=== PATIENT | male | born 1970 | race Caucasian/White ===

== ENCOUNTER 2022-06-21 20:19 | Inpatient (IN) ==
[2022-06-21] MEDS ORDERED: MULTI-VITAMIN INFUSION 10 ML, THIAMINE HCL 100 MG, FOLIC ACID 1 MG in SODIUM CHLORIDE 0... IV ONE (20:47)
[2022-06-21] MEDS ORDERED: THIAMINE HCL 200 MG in SODIUM CHLORIDE 0.9% 50 ML IV STA (20:47)
[2022-06-21] MEDS ORDERED: FAMOTIDINE 20MG IV PUSH 20 MG/5 ML SYR IV STA (20:48)
[2022-06-21] MEDS ORDERED: ONDANSETRON INJ 2 MG/ML 2 ML VIAL IV STA (20:48)
--- NOTE | 2022-06-21 20:53 | Emergency Department Note ---
Impression & Plan Alcohol dependence, Alcohol withdrawal, Hypomagnesemia, Alcoholic gastritis, Elevated hemoglobin, Elevated hematocrit ED Provider Note NAME: KIRT ARAGON AGE: 51 SEX: F ARRIVES VIA: Ambulance INFORMANT: Patient ED PROVIDER(S): Leon Millan MD CHIEF COMPLAINT: chest pain, detox request PLAN: Disposition: admit MEDICAL DECISION MAKING: The patient is a 51-year-old gentleman with a past medical history of alcohol abuse/dependence, history of heroin abuse who presents to the emergency department via EMS for evaluation of cute onset chest pain and shortness of breath which occurred prior to arrival when he woke from sleep. He reports this motivated him to want to detox from alcohol as he know he needs to do to "get better". He reports he did have some vodka prior to EMS arrival. He reports he drinks half a gallon of vodka a day. He reports a history of withdrawal and delirium. He denies any history of alcohol withdrawal seizures. He denies any recent cough, congestion. He reports he has not eaten food in a week because of nausea. He reports loose stools which is chronic for him. On arrival, the patient is no acute distress, afebrile with stable vital signs. He appears clinically dry. Abdomen is benign. He is mildly anxious. EKG without overt acute ischemia. Chest x-ray with question of nonspecific interstitial thickening in the setting of the patient's daily smoking history per my prelimary review. WBC 4K, nonspecific. H/H elevated at 19.2/53.7 without prior values for comparison and likely reflects a component of the patient's daily smoking as well as hemoconcentration given his clinical dry appearance. Platelets within normal limits. Potassium 3.1 and magnesium 1.6 with repletion provided. Chemistry without metabolic acidosis. AST elevated 93 consistent with the patient's alcohol dependence. High-sensitivity troponin 7.6, within normal limits. Lipase is not elevated. Medical alcohol 258. COVID-19 RNA, RODRIGO test was negative. Patient was treated with IV fluid hydration with banana bag, nimesh tional thiamine supplementation, Pepcid and Zofran. AWSS scoring and PRN Ativan ordered. Patient was referred for admission for further management of his alcohol dependence and risk for withdrawal. Case was discussed with Dr. Winter, [facility] hospitalist, who will evaluate the patient for admission. Triage Nursing notes reviewed and agree them. Prior medical records reviewed Vital Signs: reviewed and remarkable for no significant abnormalities Differential diagnosis: Cardiac ischemia, aortic dissection, pulmonary embolism, pneumothorax, pneumonia, pericarditis, myocarditis, esophageal rupture, GERD, cholecystitis, pancreatitis, musculoskeletal, as well as other pathologies. ER treatment provided: See below. Diagnostics interpreted by me: ECG: Normal sinus rhythm, 60 bpm, no ectopy, no overt ST elevation or depression, QTC 450, QRS 98. Cardiac Monitoring: An order for continuous cardiac monitoring was placed and demonstrated Normal sinus rhythm, 60 bpm, no ectopy. Laboratory studies: See below Imaging studies: See below Consultation(s): Case was discussed with Dr. Winter, [facility] hospitalist, who will evaluate the patient for admission. HPI: The patient is a 51-year-old gentleman with a past medical history of alcohol abuse/dependence, history of heroin abuse who presents to the emergency department via EMS for evaluation of cute onset chest pain and shortness of breath which occurred prior to arrival when he woke from sleep. He reports this motivated him to want to detox from alcohol as he know he needs to do to "get better". He reports he did have some vodka prior to EMS arrival. He reports he drinks half a gallon of vodka a day. He reports a history of withdrawal and delirium. He denies any history of alcohol withdrawal seizures. He denies any recent cough, congestion. He reports he has not eaten food in a week because of nausea. He reports loose stools which is chronic for him. ROS: See above HPI for pertinent positives & negatives. A total of 10 systems reviewed and were otherwise negative. VITALS:See Below PHYSICAL EXAMINATION: GENERAL: Awake, alert, anxious-appearing, in no distress HENT: Normocephalic, atraumatic. Oropharynx with dry mucous membranes and otherwise unremarkable. EYES: Normal conjunctiva. Sclera non-icteric. NECK: Supple. No nuchal rigidity. FROM. No JVD. RESPIRATORY: Clear to auscultation. CARDIAC: Regular rate, normal rhythm. Extremities warm and well perfused. Pulses equal. ABDOMEN: Soft, non-distended. No tenderness to palpation. No rebound or guardin g. No masses. RECTAL: Deferred. MUSCULOSKELETAL: Chest examination reveals no tenderness. The back is symmetrical on inspection without obvious abnormality. There is no CVA tenderness to palpation. No joint edema. LOWER EXTREMITIES: Calves are equal size bilaterally and non-tender. No edema. No discoloration. NEURO: Normal sensorium. No focal sensory or motor deficits noted. No overt tremors. SKIN: No rash or jaundice noted. Leon Millan MD Past Med/Surg History Medical History Alcohol dependence Alcohol withdrawal History of heroin abuse Family History Other Family history non-contributory Social History Smoking Status: Current every day smoker Preferred Language: Dutch Feels Safe at Home: Yes Allergies Allergies Allergy/AdvReac Type Severity Reaction Status Date / Time No Known Allergies Allergy Unverified 06/21/22 21:12 Home Meds Home Medications Medication Instructions Recorded Confirmed trazodone 50 mg tablet 50 mg PO HS 06/21/22 06/21/22 Results & Data (ED) Vital Signs Vital Signs - 24 hr 06/21/22 20:25 06/21/22 20:35 06/21/22 21:53 Temperature 36.9 C Temperature Source Oral Pulse Rate 69 Pulse Rate [Finger] 104 H Respiratory Rate 18 18 Respiratory Effort / Characteristics Non-Labored Spontaneous Non-Labored Spontaneous Respiratory Depth Normal Normal Blood Pressure 134/91 Blood Pressure [Right Arm] 127/87 Blood Pressure Mean 105 Blood Pressure Mean [Right Arm] 100 Blood Pressure Position Sitting Blood Pressure Position [Right Arm] Sitting Pulse Oximetry 91 91 96 Oxygen Delivery Method Room Air Room Air Room Air Sepsis Recent Fever Within 48 Hours No Sepsis New/Unexplained Change in Mental Status No Sepsis Action Taken by Nursing No Action Required 06/21/22 22:16 06/21/22 22:16 06/21/22 23:52 Temperature Temperature Source Pulse Rate 72 Pulse Rate [Finger] 90 Respiratory Rate 18 22 Respiratory Effort / Characteristics Respiratory Depth Blood Pressure Blood Pressure [Right Arm] 127/75 Blood Pressure Mean Blood Pressure Mean [Right Arm] 92 Blood Pressure Position Blood Pressure Position [Right Arm] Pulse Oximetry 96 96 97 Oxygen Delivery Method Room Air Room Air Room Air Sepsis Recent Fever Within 48 Hours Sepsis New/Unexplained Change in Mental Status Sepsis Action Taken by Nursing Laboratory Data Attestation: I reviewed the patient's lab results. Result diagrams: 06/21/22 20:35 06/21/22 20:35 Lab Results 06/21/22 06/21/22 06/21/22 Range/Units 20:35 20:35 Unknown WBC 4.17 L (4.8-10.8) K/ul RBC 5.75 H (3.93-5.22) M/uL Hgb 19.2 H (12.0-16.0) g/dl Hct 53.7 H (34.1-44.9) % MCV 93.4 (80.0-100.0) fL MCH 33.4 (25.0-34.0) pg MCHC 35.8 (32.0-36.0) g/dL RDW Std Deviation 51.2 H (36.4-46.3) fL RDW Coeff of Kristopher 14.9 H (11.5-14.5) % Plt Count 146 (130-400) K/uL MPV 10.3 (9.4-12.3) fL Immature Gran % (Auto) 0.2 % Neut % (Auto) 34.1 % Lymph % (Auto) 55.2 % Avery % (Auto) 9.1 % Eos % (Auto) 0.7 % Baso % (Auto) 0.7 % Neut # (Auto) 1.42 (1.4-6.5) K/uL Lymph # (Auto) 2.30 (1.2-3.4) K/uL Avery # (Auto) 0.38 (0.24-0.82) K/uL Eos # (Auto) 0.03 (0-0.50) K/uL Baso # (Auto) 0.03 (0-0.2) K/uL Immature Gran # (Auto) 0.01 (0.00-0.02) K/uL Sodium 145 (136-145) mmol/L Potassium 3.1 L (3.5-5.1) mmol/L Chloride 106 (98-107) mmol/L Carbon Dioxide 27 (21-32) mmol/L Anion Gap 12 H (3-11) BUN 2 L (6-23) mg/dl Creatinine 0.78 (0.6-1.4) mg/dl Est Cr Clr Drug Dosing 124.4 ml/min Est GFR ( Amer) 122.0 ml/min Est GFR (Non-Af Amer) 105.3 ml/min BUN/Creatinine Ratio 2.6 L (10-20) Glucose 95 (70-99(Fasting)) mg/dl Calcium 8.8 (8.5-10.1) mg/dl Phosphorus 3.0 (2.5-4.9) mg/dl Magnesium 1.6 L (1.7-2.4) mg/dl Total Bilirubin 0.8 (0.2-1.0) mg/dl AST 93 H (13-39) U/L ALT 44 (7-52) U/L Alkaline Phosphatase 105 H (34-104) U/L Troponin I High Sens 7.6 (0-20) pg/ml Total Protein 7.5 (6.0-8.3) gm/dl Albumin 4.0 (3.4-5.0) gm/dl Globulin 3.5 (2.5-4.0) gm/dl Albumin/Globulin Ratio 1.1 (0.9-2) Lipase 11 (11-82) U/L Ethyl Alcohol mg/dL (<10.0) mg/dl SARS-CoV-2, RNA, NAAT NEGATIVE (NEGATIVE) 06/22/22 06/22/22 Range/Units 00:03 00:03 WBC (4.8-10.8) K/ul RBC (3.93-5.22) M/uL Hgb (12.0-16.0) g/dl Hct (34.1-44.9) % MCV (80.0-100.0) fL MCH (25.0-34.0) pg MCHC (32.0-36.0) g/dL RDW Std Deviation (36.4-46.3) fL RDW Coeff of Kristopher (11.5-14.5) % Plt Count (130-400) K/uL MPV (9.4-12.3) fL Immature Gran % (Auto) % Neut % (Auto) % Lymph % (Auto) % Avery % (Auto) % Eos % (Auto) % Baso % (Auto) % Neut # (Auto) (1.4-6.5) K/uL Lymph # (Auto) (1.2-3.4) K/uL Avery # (Auto) (0.24-0.82) K/uL Eos # (Auto) (0-0.50) K/uL Baso # (Auto) (0-0.2) K/uL Immature Gran # (Auto) (0.00-0.02) K/uL Sodium (136-145) mmol/L Potassium (3.5-5.1) mmol/L Chloride (98-107) mmol/L Carbon Dioxide (21-32) mmol/L Anion Gap (3-11) BUN (6-23) mg/dl Creatinine (0.6-1.4) mg/dl Est Cr Clr Drug Dosing ml/min Est GFR ( Amer) ml/min Est GFR (Non-Af Amer) ml/min BUN/Creatinine Ratio (10-20) Glucose (70-99(Fasting)) mg/dl Calcium (8.5-10.1) mg/dl Phosphorus (2.5-4.9) mg/dl Magnesium (1.7-2.4) mg/dl Total Bilirubin (0.2-1.0) mg/dl AST (13-39) U/L ALT (7-52) U/L Alkaline Phosphatase (34-104) U/L Troponin I High Sens 7.2 (0-20) pg/ml Total Protein (6.0-8.3) gm/dl Albumin (3.4-5.0) gm/dl Globulin (2.5-4.0) gm/dl Albumin/Globulin Ratio (0.9-2) Lipase (11-82) U/L Ethyl Alcohol mg/dL 258.7 H (<10.0) mg/dl SARS-CoV-2, RNA, NAAT (NEGATIVE) Administered Medications Discontinued Medications Multivitamins 10 ml/ Thiamine HCl 100 mg/ Folic Acid 1 mg/Sodium Chloride 1, 011.2 mls @ 1,011.2 mls/hr IV .Q1H ONE Stop: 06/21/22 21:46 Last Infusion: 06/21/22 23:52 Dose: 0 mls/hr Documented By: MWDariel Admin: 06/21/22 22:40 Dose: 1,011.2 mls/hr Documented By: CC Thiamine HCl 200 mg/ Sodium (Chloride) 52 mls @ 208 mls/hr IV NOW STA Stop: 06/21/22 20:48 Last Infusion: 06/21/22 22:56 Dose: 0 mls/hr Documented By: Admin: 06/21/22 22:01 Dose: 208 mls/hr Documented By: CC Famotidine (Pepcid 20mg Iv Push) 20 mg in 5 mls @ 2.5 mls/min IV NOW STA Stop: 06/21/22 20:49 Last Admin: 06/21/22 21:29 Dose: 2.5 mls/min Documented By: CC Magnesium Sulfate/Dextrose (Magnesium Sulfate / D5w) 1 gm in 100 mls @ 100 mls/hr IV Q1H BEATRICE Stop: 06/22/22 00:03 Last Admin: 06/21/22 23:48 Dose: 100 mls/hr Documented By: Infusion: 06/21/22 23:48 Dose: 100 mls/hr Documented By: Admin: 06/21/22 22:51 Dose: 100 mls/hr Documented By: CC Sodium Chloride (Nss 1000ml) 1,000 mls @ 999 mls/hr IV .Q1H1M ONE Stop: 06/21/22 23:40 Last Admin: 06/21/22 23:49 Dose: 999 mls/hr Documented By: BASIL Potassium Chloride (K Ar / Wtr) 10 meq in 100 mls @ 100 mls/hr IV Q1H BEATRICE; Protocol Stop: 06/22/22 00:44 Last Admin: 06/21/22 23:48 Dose: 100 mls/hr Documented By: Infusion: 06/21/22 23:48 Dose: 100 mls/hr Documented By: Admin: 06/21/22 22:52 Dose: 100 mls/hr Documented By: CC Ondansetron HCl (Ondansetron Inj 2 Mg/Ml 2 Ml Vial) 4 mg IV NOW STA Stop: 06/21/22 20:49 Last Admin: 06/21/22 21:25 Dose: 4 mg Documented By: CC Imaging Data My Impression: CXR: Nonspecific interstitial thickening per my preliminary review. Discharge Plan Visit Data Chief Complaint: Detox Request Stated Complaint: detoxing ED Provider: Leon Millan Discharge Problem: Alcohol dependence, Alcohol withdrawal, Hypomagnesemia, Alcoholic gastritis, Elevated hemoglobin, Elevated hematocrit Forms Stand Alone Forms: [facility], Suicide Prevention Resources Prescriptions Prescriptions: No Action trazodone 50 mg Tablet 50 mg PO HS Referrals Referrals: PCP,NO [Physician] -
[2022-06-21 21:13] LABS: Mean Corpuscular Hemoglobin 33.4 pg (25.0-34.0); Mean Corpuscular Hgb Conc 35.8 g/dL (32.0-36.0); Mean Corpuscular Volume 93.4 fL (80.0-100.0); Platelet Count 146 K/uL (130-400); RDW Coefficient of Variation 14.9 % (11.5-14.5); RDW Standard Deviation 51.2 fL (36.4-46.3); White Blood Count 4.17 K/ul (4.8-10.8)
[2022-06-21 21:32] LABS: Troponin I High Sensitivity 7.6 pg/ml (0-20)
[2022-06-21 21:43] LABS: Albumin Globulin Ratio 1.1 (0.9-2); BUN Creatinine Ratio 2.6 (10-20); Bilirubin,Total 0.8 mg/dl (0.2-1.0); Calcium 8.8 mg/dl (8.5-10.1); Creatinine Clr Calc Pharmacy 124.4 ml/min; Est GFR (Non-African American) 105.3 ml/min; Globulin 3.5 gm/dl (2.5-4.0); Magnesium 1.6 mg/dl (1.7-2.4); Potassium 3.1 mmol/L (3.5-5.1); Total Protein 7.5 gm/dl (6.0-8.3)
[2022-06-21] MEDS ORDERED: LORazepam 1 MG in SYRINGE 0.5 ML IV PRN (22:02)
[2022-06-21] MEDS ORDERED: SODIUM CHLORIDE 0.9% 1000ML 1,000 ML IV ONE (22:40)
[2022-06-21 22:42] LABS: Basophils # (auto) 0.03 K/uL (0-0.2); Basophils % (auto) 0.7 %; Eosinophils # (auto) 0.03 K/uL (0-0.50); Eosinophils % (auto) 0.7 %; Immature Granulocytes # (auto) 0.01 K/uL (0.00-0.02); Immature Granulocytes % (auto) 0.2 %; Lymphocytes % (auto) 55.2 %; Monocytes # (auto) 0.38 K/uL (0.24-0.82); Monocytes % (auto) 9.1 %; Neutrophils # (auto) 1.42 K/uL (1.4-6.5); Neutrophils % (auto) 34.1 %
[2022-06-21] MEDS: MAGNESIUM SULFATE / D5W 1 GM/100 ML BAG IV SCH ×2 (22:51→23:48)
[2022-06-21] MEDS: POTASSIUM CHLORIDE / WTR 10 MEQ/100 ML PLCT IV SCH ×2 (22:52→23:48)
[2022-06-22] MEDS ORDERED: POTASSIUM CHLORIDE 20 MEQ/15 ML UDC PO STA (00:32)
[2022-06-22] MEDS ORDERED: cloNIDine HCL 0.1 MG TAB PO PRN (01:48)
[2022-06-22] MEDS ORDERED: ONDANSETRON INJ 2 MG/ML 2 ML VIAL IV PRN (01:48)
[2022-06-22] MEDS ORDERED: NITROGLYCERIN SL 0.4 MG/TAB TAB SL PRN (01:48)
[2022-06-22] MEDS ORDERED: Ativan IV Alcohol Withdrawal--Active Protocol IV PRN (01:48)
[2022-06-22] MEDS ORDERED: LORazepam 3 MG in SYRINGE 1.5 ML IV PRN (01:48)
[2022-06-22] MEDS ORDERED: LORazepam 2 MG in SYRINGE 1 ML IV PRN (01:48)
[2022-06-22] MEDS ORDERED: chlordiazePOXIDE ALCOHOL WITHDRAWL 50MG PO STA (01:48)
[2022-06-22] MEDS ORDERED: SODIUM CHLORIDE 0.9% 1000ML 1,000 ML IV SCH (01:48)
[2022-06-22] MEDS: chlordiazePOXIDE HCl 25 MG CAP PO SCH ×4 (02:57→20:07)
--- NOTE | 2022-06-22 04:03 | History and Physical Report ---
DATE OF ADMISSION: 06/22/2022. CHIEF COMPLAINT: Chest pain. Alcohol detox request. HISTORY OF PRESENT ILLNESS: A 51-year-old male with past medical history significant for mitral valve disorder, history of cervical intervertebral disc displacement, cervicalgia, anxiety, tobacco use disorder, depression, ongoing alcoholism, presents with alcohol detox request. The patient states that he had tried to quit few times in the past, last time he tried to quit was 3 weeks ago. He states he is drinking about half a gallon of alcohol daily and also root beer, drinking regularly since last one and half years. Before that he quit for 9 months when his was . Yesterday when he woke up in the afternoon he felt he was not breathing right and he took a deep breath and then he had severe chest pain all over the chest that lasted for about 1 hour, at that time he decided to quit alcohol and came to the hospital to help with withdrawal. Resting comfortably, hemodynamically stable. Denies any headache or neck pain. 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 No sore throat. No cough, no fever, no chills. No shortness of breath. Today he is not nauseous, denies any abdominal pain. Normal bowel and bladder movements. No swelling in the legs. ALLERGIES: No known drug allergies. PAST MEDICAL HISTORY: As mentioned above. PAST SURGICAL HISTORY: No surgical history on file. SOCIAL HISTORY: , smokes 1 pack a day. Alcohol, drinking quarter gallon of alcohol daily and also root beer. Smokes marijuana a couple times a week. REVIEW OF SYSTEMS: As per HPI. Rest of review of systems is negative. PHYSICAL EXAMINATION: GENERAL: The patient is of moderate build, not in acute distress. VITAL SIGNS: Temperature 36.9, pulse 90, respiratory rate 22, blood pressure 127/75, oxygen 97% on room air. HEENT: Pupils equal, round and reactive to light. Oral mucosa moist. NECK: No JVD. No neck masses. CARDIOVASCULAR: S1 and S2 heard. Regular rate and rhythm. No murmur, no gallop. RESPIRATORY SYSTEM: Normal AP diameter. No accessory muscle use. No wheezing, no crackles. ABDOMEN: Soft, bowel sounds present, nontender, no distention. CENTRAL NERVOUS SYSTEM: Cranial nerves II through XII are grossly intact, nonfocal. EXTREMITIES: No edema, no erythema. LABORATORY DATA: WBC 4.1, hemoglobin 19.2, hematocrit 53.7, platelets 146. Sodium 145, potassium 3.1, chloride 107, bicarbonate 27, BUN 22, creatinine 0.7, serum glucose 95, calcium 8.8, phosphorus 3, magnesium 1.6, total bilirubin 0.8, AST 93, ALT 44, alkaline phosphatase 105. Troponin I high sensitivity 7.6. Lipase 11. Ethyl alcohol 258. SARS-CoV-2 rapid test negative. IMAGING DATA: Chest x-ray, no acute findings. EKG: Normal sinus rhythm at a rate of 60, no previous EKGs available. ASSESSMENT AND PLAN: This is a 51-year-old male who presents with chest pain and for alcohol detoxification. 1. Chest pain, initial workup was negative. The patient duenas hx of alcoholism, smoking. Follow serial enzymes, echo, consult cardiology for further recommendations. We will keep him n.p.o. until seen by cardiology. 2. Alcoholism. Detox request. He received banana bag in the ER. Place him on p.o. Librium protocol and IV Ativan p.r.n., IV thiamine, IV folic acid and closely monitor for alcohol withdrawal. Follow the vitamin B12, folate levels. clonidine p.r.n. for any withdrawal. 3. History of tobacco abuse, nicotine patch. 4. History of depression, on trazodone. 5. History of mitral valve disorder. Follow echo. 6. Hypokalemia: Will replace. 7. Deep venous thrombosis prophylaxis: Lovenox. DISPOSITION: Closely monitor in the med/tele. PT/OT prior to discharge. Social service to help with discharge planning. Job ID: [id number] [facility]
[2022-06-22] MEDS ORDERED: LORazepam 2 MG/1 ML VIAL ONE ×2 (07:10→13:22)
[2022-06-22] MEDS: LORazepam 1 MG in SYRINGE 0.5 ML IV PRN ×2 (07:14→13:24)
--- NOTE | 2022-06-22 07:59 | XRay Report ---
XR chest 1V portable CLINICAL HISTORY: Chest Pain TECHNIQUE: Single frontal radiograph of the chest was obtained. Comparison: None available at the time of this dictation. FINDINGS: No lines and tubes are seen. The cardiomediastinal silhouette is normal. The lungs are clear. No evid ence of pleural effusion or pneumothorax. IMPRESSION: No acute chest disease. ACT 112: Negative or not required by law. Electronically signed by: Arthur Cabrera M.D. 06/22/2022 7:57 AM
[2022-06-22 08:16] LABS: Hematocrit (blood only) 46.5 % (40.1-51.0); Hemoglobin 16.3 g/dl (14.0-18.0); Mean Corpuscular Hemoglobin 33.5 pg (25.0-34.0); Mean Corpuscular Hgb Conc 35.1 g/dL (32.0-36.0); Mean Corpuscular Volume 95.5 fL (80.0-100.0); Mean Platelet Volume 10.5 fL (9.4-12.4); Platelet Count 140 K/uL (130-400); RDW Coefficient of Variation 15.1 % (11.5-14.5); RDW Standard Deviation 53.2 fL (36.4-46.3); Red Blood Count 4.87 M/uL (4.63-6.08); White Blood Count 4.17 K/ul (4.8-10.8)
--- NOTE | 2022-06-22 08:35 | Cardiology Consultation ---
Date of Consultation June 22, 2022 Assessment & Plan (1) Alcohol dependence: (2) Alcohol withdrawal: (3) Alcoholic gastritis: (4) Chest pain: Plan chest pain in the setting of acute alcohol intoxication in a patient with chronic alcoholism that presented requesting detox trop negative ekg unremarkable check echo very low likelihood of ACS recommend treating alcoholism and complete cardiac work up as outpatient Recommend treating underlying alcoholic gastritis History of Present Illness Reason for Consultation: chest pain Requesting Physician: Moy Attending Physician: Akil Valles MD History of Present Illness It was my pleasure to see Mr. Prince in cardiac consultation today June 22, 2022. He is a very pleasant 51-year-old gentleman who presented to [facility] on 06/21/2022 seeking acute inpatient detox for alcoholism. Upon review of systems, he stated that he has been having some chest/epigastric discomfort on the morning of presentation. He states that similar to the gastritis pain that he has had in the past. He also states he has been drinking alcohol continuously but has not eaten any food in 1 week. Denies any other cardiac complaints of shortness of breath, or palpitations. Allergies Allergy/AdvReac Type Severity Reaction Status Date / Time No Known Allergies Allergy Unverified 06/21/22 21:12 Home Medications Medication Instructions Recorded Confirmed Type trazodone 50 mg tablet 50 mg PO HS 06/21/22 06/21/22 History Patient History Medical History Alcohol dependence Alcohol withdrawal History of heroin abuse Family History Other Family history non-contributory Social History Smoking Status: Current every day smoker Cigarettes Per Day: 1/2 pack/day; Hx Alcohol Use: Yes Alcohol type: hard liquor Preferred Language: Portuguese Communication Ability: Effective Nursing Instructor Required: No Beliefs That Will Affect Care: None Current Living Situation: Significant Other Other Information That Helps Us Care for You: No Feels Safe at Home: Yes Safety Concerns: Feels Safe At This Time Assistive Devices: None Review of Systems Review of Systems: All systems reviewed & are unremarkable except as noted in HPI & below Physical Exam Physical Exam: General: Awake, alert and oriented x 3. Mildly anxious HEENT: Normocephalic, atraumatic. Pupils equal, round and reactive to light and accommodation. Extraocular muscles are intact. Anicteric sclera. Moist mucous membranes. Neck: No JVD. No bruit. Cardiovascular: Regular. Positive S-4. Normal S-1 and S-2. No S-3. No murmurs or rubs. Pulmonary: Clear to auscultation B/L. No rales, rhonchi or wheezing Abdomen: Bowel sounds x 4, soft. No rebound, guarding or tenderness. No organomegaly. Extremities: No clubbing, cyanosis or edema. +2 pedal pulses bilaterally. Skin: Warm and dry. Results & Data ([facility]) Vital Signs (Past 12 Hours) Vital Signs Pulse Pulse Resp BP BP Pulse Ox Pulse Ox 06/22/22 07:35 94 06/22/22 06:00 65 17 06/22/22 05:30 70 20 06/22/22 05:00 66 19 06/22/22 04:30 63 13 06/22/22 04:09 119/74 06/22/22 04:09 65 12 06/22/22 04:00 63 19 06/22/22 03:30 65 16 06/22/22 03:00 80 16 97 06/22/22 03:00 129/92 06/22/22 02:30 60 16 06/22/22 02:00 67 12 95 06/22/22 02:00 120/82 06/22/22 01:57 64 20 95 06/22/22 01:57 114/78 06/22/22 01:30 64 16 06/22/22 01:00 64 17 06/22/22 00:30 60 10 L 06/22/22 00:00 83 25 H 06/21/22 23:43 62 22 92 06/21/22 23:43 127/75 06/21/22 23:42 76 15 90 06/21/22 23:04 121/67 06/21/22 23:04 61 17 94 06/21/22 23:00 65 21 06/21/22 22:30 61 23 06/21/22 22:01 91 H 28 H 06/21/22 22:01 110/80 06/21/22 22:00 66 23 90 06/21/22 21:54 85 25 H 06/21/22 21:54 127/87 06/21/22 21:30 70 22 93 06/21/22 21:00 66 19 95 06/22/22 02:02 64 114/78 91 06/21/22 23:52 90 22 127/75 97 06/21/22 22:16 72 18 96 06/21/22 22:16 96 06/21/22 21:53 104 H 18 127/87 96 06/21/22 20:35 91 O2 Del Method O2 Del Method 06/22/22 07:35 Nasal Cannula 06/22/22 06:00 06/22/22 05:30 06/22/22 05:00 06/22/22 04:30 06/22/22 04:09 06/22/22 04:09 06/22/22 04:00 06/22/22 03:30 06/22/22 03:00 06/22/22 03:00 06/22/22 02:30 06/22/22 02:00 06/22/22 02:00 06/22/22 01:57 06/22/22 01:57 06/22/22 01:30 06/22/22 01:00 06/22/22 00:30 06/22/22 00:00 06/21/22 23:43 06/21/22 23:43 06/21/22 23:42 06/21/22 23:04 06/21/22 23:04 06/21/22 23:00 06/21/22 22:30 06/21/22 22:01 06/21/22 22:01 06/21/22 22:00 06/21/22 21:54 06/21/22 21:54 06/21/22 21:30 06/21/22 21:00 06/22/22 02:02 Room Air 06/21/22 23:52 Room Air 06/21/22 22:16 Room Air 06/21/22 22:16 Room Air 06/21/22 21:53 Room Air 06/21/22 20:35 Room Air
[2022-06-22] MEDS: THIAMINE HCL 100 MG in SYRINGE 9 ML IV SCH (08:41)
[2022-06-22] MEDS: NICOTINE 21 MG/24 HR TDSY TD SCH (08:42)
[2022-06-22 08:43] LABS: Basophils # (auto) 0.03 K/uL (0-0.2); Basophils % (auto) 0.7 %; Eosinophils # (auto) 0.05 K/uL (0-0.50); Eosinophils % (auto) 1.2 %; Immature Granulocytes # (auto) 0.01 K/uL (0.00-0.02); Immature Granulocytes % (auto) 0.2 %; Lymphocytes # (auto) 1.79 K/uL (1.2-3.4); Lymphocytes % (auto) 42.9 %; Monocytes # (auto) 0.32 K/uL (0.24-0.82); Monocytes % (auto) 7.7 %; Neutrophils # (auto) 1.97 K/uL (1.4-6.5); Neutrophils % (auto) 47.3 %
[2022-06-22] MEDS: FAMOTIDINE 10 MG TABLET PO SCH ×2 (08:43→20:04)
[2022-06-22] MEDS: CEROVITE ADV FORMULA TAB PO SCH (08:43)
[2022-06-22] MEDS: ENOXAPARIN INJ 40 MG/0.4 ML SYR SQ SCH (08:44)
[2022-06-22] MEDS: FOLIC ACID 1 MG in SYRINGE 9.8 ML IV SCH (08:46)
[2022-06-22 08:50] LABS: BUN Creatinine Ratio 2.6 (10-20); Calcium 7.5 mg/dl (8.5-10.1); Est GFR (African American) 122.6 ml/min; Est GFR (Non-African American) 105.8 ml/min; Magnesium 1.6 mg/dl (1.7-2.4); Potassium 3.3 mmol/L (3.5-5.1)
[2022-06-22 08:53] LABS: Troponin I High Sensitivity 6.9 pg/ml (0-20)
[2022-06-22 09:17] LABS: Folate (Folic Acid) 6.29 ng/ml (>5.38)
--- NOTE | 2022-06-22 09:28 | Electrocardiogram Report ---
Test Reason : Blood Pressure : / mmHG Vent. Rate : 060 BPM Atrial Rate : 060 BPM P-R Int : 132 ms QRS Dur : 098 ms QT Int : 450 ms P-R-T Axes : 044 077 042 degrees QTc Int : 450 ms Poor data quality, interpretation may be adversely affected Normal sinus rhythm Poor R wave progression, consider anterior MA vs. lead placement vs. LVH Abnormal ECG No previous ECGs available Confirmed by James Mendez ([id number]) on 06/22/2022 9:28:21 AM Referred By: REFERRED SELF Confirmed By:James Mendez
[2022-06-22 09:32] LABS: Albumin Level 3.3 gm/dl (3.4-5.0); Bilirubin Direct 0.3 mg/dl (0-0.2); Bilirubin,Total 0.9 mg/dl (0.2-1.0)
--- NOTE | 2022-06-22 16:28 | Electrocardiogram Report ---
Test Reason : Blood Pressure : / mmHG Vent. Rate : 069 BPM Atrial Rate : 069 BPM P-R Int : 124 ms QRS Dur : 104 ms QT Int : 468 ms P-R-T Axes : 037 066 051 degrees QTc Int : 501 ms Normal sinus rhythm Poor R wave progression, consider anterior FL vs. lead placement vs. LVH Prolonged QT Abnormal ECG When compared with ECG of 21-JUN-2022 20:20, QT has lengthened Confirmed by James Mendez ([id number]) on 06/22/2022 4:27:36 PM Referred By: REFERRED SELF Confirmed By:James Mendez
[2022-06-22] MEDS ORDERED: ACETAMINOPHEN 500 MG TAB PO PRN (16:45)
[2022-06-22] MEDS ORDERED: HYDROCODONE/ACETAMOPHEN 5/325MG TAB PO PRN (16:46)
--- NOTE | 2022-06-22 18:16 | Communication Note ---
Date of Service: June 22, 2022 Attending Addendum: patient seen and examined, records reviewed by myself as well on exam, patient seen resting in bed, comfortable sitting up pleasant, calm, cooperative states he feels better overall denies tremors, hallucinations, sweats, confusion does reports BLE spasms- which he attributes from shaking denies depression, anxiety, SI no chest pain, dyspnea, palpitations, dizziness no other symptoms VS noted and reviewed oriented x 3, not in distress, speaks in sentences with no effort nor accessory muscle use normal rate, regular rhythm, no murmurs clear breath sounds bilaterally non distended, soft, nontender no bipedal edema, erythema, warmth no neuro deficits no tremors all labs noted and reviewed ASSESSMENT AND PLAN> CHEST PAIN ACS ruled out ALCOHOL WITHDRAWAL continue Librium, PRN Ativan LEG CRAMPS check electrolytes IV NSS PRN tylenol, norco warm compress other diagnoses and plan of care as per Dr Winter's notes plan of care discussed with patient in detail and at length all questions answered he is understanding, agreeable, comfortable with the plan of care Kamar Chavis MD
[2022-06-22 18:24] LABS: BUN Creatinine Ratio 3.6 (10-20); Calcium 8.1 mg/dl (8.5-10.1); Creatinine Clr Calc Pharmacy 115.5 ml/min; Est GFR (African American) 118.3 ml/min; Est GFR (Non-African American) 102.1 ml/min; Magnesium 1.4 mg/dl (1.7-2.4); Phosphorus 2.3 mg/dl (2.5-4.9); Potassium 3.4 mmol/L (3.5-5.1)
[2022-06-22] MEDS ORDERED: POTASSIUM CHLORIDE CRTAB 20 MEQ TABCR PO STA (18:35)
[2022-06-22] MEDS: NSS + 20MEQ KCL 20 MEQ/1,000 ML BAG IV SCH (18:43)
[2022-06-22] MEDS: POT PHOSPHATE MONOBASIC W/ SOD TAB PO SCH ×2 (18:47→20:07)
[2022-06-22] MEDS: MAGNESIUM SULFATE / D5W 1 GM/100 ML BAG IV SCH ×2 (18:48→20:31)
[2022-06-22] MEDS ORDERED: traZODone HCL 50 MG TAB PO SCH (21:00)
[2022-06-23] MEDS: chlordiazePOXIDE HCl 25 MG CAP PO SCH ×2 (01:53→09:57)
[2022-06-23] MEDS: NSS + 20MEQ KCL 20 MEQ/1,000 ML BAG IV SCH (06:17)
[2022-06-23] MEDS: THIAMINE HCL 100 MG in SYRINGE 9 ML IV SCH (07:49)
[2022-06-23] MEDS: FAMOTIDINE 10 MG TABLET PO SCH (07:50)
[2022-06-23] MEDS: CEROVITE ADV FORMULA TAB PO SCH (07:50)
[2022-06-23] MEDS: ENOXAPARIN INJ 40 MG/0.4 ML SYR SQ SCH (07:51)
[2022-06-23] MEDS: NICOTINE 21 MG/24 HR TDSY TD SCH (07:51)
[2022-06-23] MEDS: POT PHOSPHATE MONOBASIC W/ SOD TAB PO SCH ×2 (07:56→11:48)
[2022-06-23] MEDS: FOLIC ACID 1 MG in SYRINGE 9.8 ML IV SCH (07:59)
[2022-06-23 09:52] LABS: BUN Creatinine Ratio 5.5 (10-20); Calcium 8.2 mg/dl (8.5-10.1); Creatinine Clr Calc Pharmacy 132.9 ml/min; Est GFR (African American) 125.4 ml/min; Est GFR (Non-African American) 108.2 ml/min; Magnesium 1.7 mg/dl (1.7-2.4); Phosphorus 2.5 mg/dl (2.5-4.9); Potassium 3.8 mmol/L (3.5-5.1)
--- NOTE | 2022-06-23 15:13 | Electrocardiogram Report ---
Test Reason : Blood Pressure : / mmHG Vent. Rate : 059 BPM Atrial Rate : 059 BPM P-R Int : 122 ms QRS Dur : 102 ms QT Int : 458 ms P-R-T Axes : 040 080 061 degrees QTc Int : 453 ms Sinus bradycardia Poor R wave progression, consider anterior PA vs. lead placement vs. LVH Abnormal ECG When compared with ECG of 22-JUN-2022 11:06, QT has shortened Confirmed by James Mendez ([id number]) on 06/23/2022 3:12:55 PM Referred By: REFERRED SELF Confirmed By:James Mendez
--- NOTE | 2022-06-24 07:45 | Discharge Summary ---
Date of Service June 23, 2022 Admission HPI Per Admitting Provider CHIEF COMPLAINT: Chest pain. Alcohol detox request. HISTORY OF PRESENT ILLNESS: A 51-year-old male with past medical history significant for mitral valve disorder, history of cervical intervertebral disc displacement, cervicalgia, anxiety, tobacco use disorder, depression, ongoing alcoholism, presents with alcohol detox request. The patient states that he had tried to quit few times in the past, last time he tried to quit was 3 weeks ago. He states he is drinking about half a gallon of alcohol daily and also root beer, drinking regularly since last one and half years. Before that he quit for 9 months when his was . Yesterday when he woke up in the afternoon he felt he was not breathing right and he took a deep breath and then he had severe chest pain all over the chest that lasted for about 1 hour, at that time he decided to quit alcohol and came to the hospital to help with withdrawal. Resting comfortably, hemodynamically stable. Denies any headache or neck pain. 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 No sore throat. No cough, no fever, no chills. No shortness of breath. Today he is not nauseous, denies any abdominal pain. Normal bowel and bladder movements. No swelling in the legs. ALLERGIES: No known drug allergies. PAST MEDICAL HISTORY: As mentioned above. PAST SURGICAL HISTORY: No surgical history on file. SOCIAL HISTORY: , smokes 1 pack a day. Alcohol, drinking quarter gallon of alcohol daily and also root beer. Smokes marijuana a couple times a week. REVIEW OF SYSTEMS: As per HPI. Rest of review of systems is negative. Admission Exam Per Admitting Provider PHYSICAL EXAMINATION: GENERAL: The patient is of moderate build, not in acute distress. VITAL SIGNS: Temperature 36.9, pulse 90, respiratory rate 22, blood pressure 127/75, oxygen 97% on room air. HEENT: Pupils equal, round and reactive to light. Oral mucosa moist. NECK: No JVD. No neck masses. CARDIOVASCULAR: S1 and S2 heard. Regular rate and rhythm. No murmur, no gallop. RESPIRATORY SYSTEM: Normal AP diameter. No accessory muscle use. No wheezing, no crackles. ABDOMEN: Soft, bowel sounds present, nontender, no distention. CENTRAL NERVOUS SYSTEM: Cranial nerves II through XII are grossly intact, nonfocal. EXTREMITIES: No edema, no erythema. Principal Diagnosis Alcohol withdrawal alcohol abuse Discharge Exam GENERAL: Alert and oriented x3. NAD, on RA. HEENT: No pallor, no icterus. Pupils equal, round and reactive to light. Oral mucosa moist. NECK: No JVD, no neck masses. HEART: S1 and S2 heard. Regular rate and rhythm. No murmur, no gallop. RESPIRATORY SYSTEM: Normal AP diameter. No accessory muscle use. No wheezing, no crackles. ABDOMEN: Soft, bowel sounds present, nontender, no distention. CENTRAL NERVOUS SYSTEM: No facial droop. Speech is clear. Obeys simple commands. Moves extremities. EXTREMITIES: No edema, no erythema seen. No tremors. 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 Pt AOx3 and no SI/no HI and competent. Pt insisted going home and mentioned he will set himself up with Alcoholic anonymous. Pt was seen/evaluated earlier today by his regular attending, then wished to change attending. I explained my plan of care to him, he insisted going home and hence decided to leave AMA. Total Time Total Time Spent Total Time Spent (In Minutes): 35 Discharge Plan Discharge Items Patient Disposition: Against Medical Advice Reason For Visit: DETOX REQUEST Activity: Resume your previous activity Non-emergency contact: Primary Care Provider Follow-up/Referrals: Roby Louie MD [Primary Care Provider] - (Date & Time 06/27/2022 11:20 AM Provider Roby Louie MD Department Family Medicine [facility] ) Pending Studies at Discharge: No Stand-Alone Forms: [facility], Work/School Release, Smoking Cessation Medications and DC Order Prescriptions: New nicotine [Nicoderm CQ] 21 mg/24 hr Patch 24 Hour 21 mg transdermal QAM Qty: 28 0RF famotidine [Acid Report Writer (famotidine)] 10 mg Tablet 10 mg PO BID Qty: 30 0RF Cerovite Senior 0.4 mg-300 mcg- 250 mcg Tablet 1 tab PO QAM Qty: 30 0RF gabapentin 300 mg capsule 300 mg PO UD 3 Days Qty: 12 0RF Rx Instructions: Day 1- 2 tab 3 times a day then Day two- 2 tabs twice a day then Day 3- 2 tabs daily then stop. thiamine HCl (vitamin B1) 100 mg tablet 100 mg PO DAILY Qty: 14 0RF folic acid 1 mg tablet 1,000 mcg PO DAILY Qty: 14 0RF Continued trazodone 50 mg Tablet 50 mg PO HS Discharge Orders: Left Against Medical Advice (Routine); Ordered 06/23/22 Ordered By: Carol Riddle Admission Data Admit Date/Time: 06/22/22 00:31 Attending Provider: Kamar Chavis Admit Provider: Humphrey Winter Primary Care Provider: Roby Louie Other Providers: Humphrey Winter ; Loco Grissom ; Segundo Briggs ; Elie Mac ; Robin Reza ; Roque Seymour ; Edin Hernandez ; Alba Rodriguez ; Parris Rangel ; Seema Ko ; Elkin oCsta ; Akil Valles
[2022-06-28 08:19] LABS: Hematocrit (blood only) 53.7 % (40.1-51.0); Hemoglobin 19.2 g/dl (14.0-18.0); Mean Platelet Volume 10.3 fL (9.4-12.4); Red Blood Count 5.75 M/uL (4.63-6.08)
== END 2022-06-23 13:02 | disposition left against medical advice (07) | DRG 894 ==
LOC: EDSEX → ED 20:19 → SUATTDRO 06-22 00:31 → MERGE 06-22 00:31 → EDINP 06-22 00:31 → 2E 06-22 01:00

== ENCOUNTER 2022-08-25 21:41 | Inpatient (IN) ==
--- NOTE | 2022-08-25 21:51 | Emergency Department Note ---
Impression & Plan Syncope, Alcohol dependence, Alcohol withdrawal, Hypomagnesemia ED Provider Note NAME: KIRT ARAGON AGE: 51 SEX: M : 1970 ARRIVES VIA: Ambulance INFORMANT: [Patient][, ] ED PROVIDER(S): [Manolo French MD] Chief Complaint: Syncope HPI: Patient presents due to concern for syncope that occurred prior to arrival. Patient states that this occurred while he was in the kitchen and felt lightheaded and dizzy and had passed out. Patient denies any tongue biting or incontinence and denies any the patient does feel improved compared to prior. Vomiting or diarrhea. The patient does admit to chronic alcoholism and does drink two thirds of a handle of vodka daily but is trying to decrease his alcohol intake over the last 2 days. Patient denies any chest pains or shortness of breath. The patient is a smoker and does occasionally use marijuana. Patient denies any headache or neck pain. He has no numbness tingling or focal weakness. The patient does not believe that he had a seizure. He was not confused after the event and denies any tongue biting or the patient states that over the last several days he has had maybe 3-4 shots a day and does not drink any beer this morning. ROS: See HPI for pertinent positives and negatives. A total of 10 systems were reviewed and otherwise negative. Past medical history: See below Surgical history: See below Social history: See below Physical Exam: GENERAL: NAD, [wearing a mask,] non-toxic. EYE EXAM: Normal conjunctiva. PERRL, no anisocoria and EOM's grossly intact w/o pain. NECK: Supple, no nuchal rigidity, no adenopathy, non-tender. No signs of meningismus. FROM of the neck with good chin to chest and neck extension. No stridor. LUNGS: Clear to auscultation. Normal chest wall mechanics. HEART: NSR, no MRG. ABDOMEN: Abdomen soft, non-tender, normo-active bowel sounds, no masses, no rebound or guarding. BACK: No CVA TTP. SKIN: No rashes and no bruising. UPPER EXTREMITIES: Upper extremities are grossly normal. LOWER EXTREMITIES: Grossly normal, no edema. NEURO EXAM: A&O x3, cranial nerves II-XII grossly intact, normal speech, moves all 4 extremities. Differential diagnoses: Vasovagal event, dehydration, infection, hypoglycemia, electrolyte abnormalities, cardiac sources, intracerebral event, pulmonary embolism, seizure, toxicologic, neurologic, as well as other pathologies. Course: Patient was seen and evaluated the bedside. Full history physical exam was performed. EKG interpreted by me Sinus bradycardia, rate of 57, normal QRS, prolonged QT, normal axis. Imaging Studies: See Below Cardiac monitoring: An order was placed for continuous cardiac monitoring. The monitor shows a rate of 62 with sinus rhythm. MDM: To present due to concern for syncope in the setting of trying to decrease his alcohol consumption known history of alcohol abuse. The patient did have blood work completed and was given a banana bag and loaded with Librium. Patient was also complaining of nausea and was given Zofran. The patient's blood work showed a white count of 5 with a hemoglobin of 17. Patient's platelet count was slightly thrombocytopenic at 120. Patient's kidney function is grossly unremarkable. The patient did have hypomagnesemia. The patient COVID-negative, mild hypokalemia. Given the patient's syncope and decreased alcohol use do believe patient would benefit from admission at this time. I did speak to the on-call hospitalist Dr. Winter and the patient was admitted to the medicine service. Past Med/Surg History Medical History (Updated 08/28/22 @ 15:19 by Manolo French MD) Alcohol dependence Alcohol withdrawal History of heroin abuse Surgical History (Updated 08/28/22 @ 15:15 by Manolo French MD) No pertinent past surgical history Family History Other Family history non-contributory Social History Smoking Status: Current every day smoker Tobacco Type: Cigarettes Cigarettes Per Day: 1 pack; Second Hand Exposure: Yes; Do You Dip or Chew Tobacco: No; Tobacco Cessation Education Requested by Patient: No Hx Alcohol Use: Yes Alcohol type: hard liquor Hx Substance Use: Yes Last Used Substance: Unknown Last Used Substance Other:: 08/24/22 Preferred Language: Polish Communication Ability: Effective Executive Chairman Required: No Beliefs That Will Affect Care: None marital status: Life Partner Current Living Situation: Family and Significant Other Other Information That Helps Us Care for You: No Feels Safe at Home: Yes Safety Concerns: Feels Safe At This Time Assistive Devices: None Allergies Allergies Allergy/AdvReac Type Severity Reaction Status Date / Time latex Allergy Intermediate BLISTERS Unverified 06/28/22 07:57 banana Allergy HIVES Verified 06/28/22 07:57 bee venom protein (honey bee) Allergy HIVES Verified 06/28/22 07:57 honey Allergy HIVES Verified 06/28/22 07:57 Home Meds Home Medications Medication Instructions Recorded Confirmed trazodone 50 mg tablet 50 mg PO HS 06/21/22 08/26/22 Previous Rx's Medication Instructions Recorded cephalexin 500 mg capsule 500 mg PO QID 5 days #20 caps 08/27/22 folic acid 1 mg tablet 1 mg PO DAILY #30 tabs 08/27/22 gabapentin 300 mg capsule 300 mg PO BID 3 days #6 caps 08/27/22 thiamine HCl (vitamin B1) 100 mg 100 mg PO DAILY #30 tabs 08/27/22 tablet Results & Data (ED) Vital Signs Vital Signs - 24 hr 08/25/22 21:44 Temperature 37.1 C Temperature Source Oral Pulse Rate 64 Pulse Rhythm Regular Pulse Strength Normal Respiratory Rate 18 Respiratory Effort / Characteristics Non-Labored Respiratory Depth Normal Respiratory Pattern Regular Blood Pressure 131/74 Blood Pressure Mean 93 Blood Pressure Position Lying Pulse Oximetry 94 Oxygen Delivery Method Room Air Sepsis Recent Fever Within 48 Hours No Sepsis New/Unexplained Change in Mental Status N/A Sepsis Action Taken by Nursing No Action Required Home Medications Current Medication List: was personally reviewed by me Laboratory Data Attestation: I reviewed the patient's lab results. Result diagrams: 08/27/22 05:47 08/27/22 05:47 Lab Results 08/25/22 08/25/22 08/25/22 Range/Units 22:30 22:46 22:46 WBC 5.83 (4.8-10.8) K/ul RBC 5.41 (4.63-6.08) M/uL Hgb 17.4 (14.0-18.0) g/dl Hct 49.3 (40.1-51.0) % MCV 91.1 (80.0-100.0) fL MCH 32.2 (25.0-34.0) pg MCHC 35.3 (32.0-36.0) g/dL RDW Std Deviation 49.5 H (36.4-46.3) fL RDW Coeff of Kristopher 15.1 H (11.5-14.5) % Plt Count 120 L (130-400) K/uL MPV 10.2 (9.4-12.4) fL Immature Gran % (Auto) 0.3 % Neut % (Auto) 72.8 % Lymph % (Auto) 21.3 % Dillingham % (Auto) 4.6 % Eos % (Auto) 0.5 % Baso % (Auto) 0.5 % Neut # (Auto) 4.24 (1.4-6.5) K/uL Lymph # (Auto) 1.24 (1.2-3.4) K/uL [place]illingham # (Auto) 0.27 (0.24-0.82) K/uL Eos # (Auto) 0.03 (0-0.50) K/uL Baso # (Auto) 0.03 (0-0.2) K/uL Immature Gran # (Auto) 0.02 (0.00-0.02) K/uL RBC Morphology Unremarkable Sodium 139 (136-145) mmol/L Potassium 3.3 L (3.5-5.1) mmol/L Chloride 103 (98-107) mmol/L Carbon Dioxide 25 (21-32) mmol/L Anion Gap 11 (3-11) BUN 5 L (6-23) mg/dl Creatinine 0.78 (0.6-1.4) mg/dl Est Cr Clr Drug Dosing 124.4 ml/min Est GFR ( Amer) 122.0 ml/min Est GFR (Non-Af Amer) 105.3 ml/min BUN/Creatinine Ratio 6.4 L (10-20) Glucose 90 (70-99(Fasting)) mg/dl Calcium 8.9 (8.5-10.1) mg/dl Phosphorus 2.6 (2.5-4.9) mg/dl Magnesium 1.6 L (1.7-2.4) mg/dl Total Bilirubin 0.7 (0.2-1.0) mg/dl AST 63 H (13-39) U/L ALT 34 (7-52) U/L Alkaline Phosphatase 88 (34-104) U/L Troponin I High Sens 5.9 (0-20) pg/ml Total Protein 6.9 (6.0-8.3) gm/dl Albumin 3.5 (3.4-5.0) gm/dl Globulin 3.4 (2.5-4.0) gm/dl Albumin/Globulin Ratio 1.0 (0.9-2) TSH (0.300-4.500) uIu/ml Ethyl Alcohol mg/dL (<10.0) mg/dl SARS-CoV-2, RNA, NAAT NEGATIVE (NEGATIVE) 08/25/22 08/25/22 Range/Units 22:46 22:46 WBC (4.8-10.8) K/ul RBC (4.63-6.08) M/uL Hgb (14.0-18.0) g/dl Hct (40.1-51.0) % MCV (80.0-100.0) fL MCH (25.0-34.0) pg MCHC (32.0-36.0) g/dL RDW Std Deviation (36.4-46.3) fL RDW Coeff of Kristopher (11.5-14.5) % Plt Count (130-400) K/uL MPV (9.4-12.4) fL Immature Gran % (Auto) % Neut % (Auto) % Lymph % (Auto) % Dillingham % (Auto) % Eos % (Auto) % Baso % (Auto) % Neut # (Auto) (1.4-6.5) K/uL Lymph # (Auto) (1.2-3.4) K/uL Dillingham # (Auto) (0.24-0.82) K/uL Eos # (Auto) (0-0.50) K/uL Baso # (Auto) (0-0.2) K/uL Immature Gran # (Auto) (0.00-0.02) K/uL RBC Morphology Sodium (136-145) mmol/L Potassium (3.5-5.1) mmol/L Chloride (98-107) mmol/L Carbon Dioxide (21-32) mmol/L Anion Gap (3-11) BUN (6-23) mg/dl Creatinine (0.6-1.4) mg/dl Est Cr Clr Drug Dosing ml/min Est GFR ( Amer) ml/min Est GFR (Non-Af Amer) ml/min BUN/Creatinine Ratio (10-20) Glucose (70-99(Fasting)) mg/dl Calcium (8.5-10.1) mg/dl Phosphorus (2.5-4.9) mg/dl Magnesium (1.7-2.4) mg/dl Total Bilirubin (0.2-1.0) mg/dl AST (13-39) U/L ALT (7-52) U/L Alkaline Phosphatase (34-104) U/L Troponin I High Sens (0-20) pg/ml Total Protein (6.0-8.3) gm/dl Albumin (3.4-5.0) gm/dl Globulin (2.5-4.0) gm/dl Albumin/Globulin Ratio (0.9-2) TSH 0.757 (0.300-4.500) uIu/ml Ethyl Alcohol mg/dL 53.1 H (<10.0) mg/dl SARS-CoV-2, RNA, NAAT (NEGATIVE) Administered Medications Discontinued Medications Chlordiazepoxide HCl (Chlordiazepoxide Hcl 25 Mg Cap) 50 mg PO NOW ONE Stop: 08/25/22 22:13 Last Admin: 08/25/22 22:43 Dose: 50 mg Documented By: NAHUN Doxycycline Hyclate (Doxycycline Hyclate 100 Mg Cap) 100 mg PO BID [facility] Stop: 09/02/22 23:29 Last Admin: 08/27/22 08:04 Dose: 100 mg Documented By: Admin: 08/27/22 00:19 Dose: 100 mg Documented By: GIGI Enoxaparin Sodium (Enoxaparin Inj 40 Mg/0.4 Ml Syr) 40 mg SQ QAM [facility] Stop: 09/25/22 08:59 Last Admin: 08/27/22 08:04 Dose: 40 mg Documented By: Admin: 08/26/22 07:44 Dose: 40 mg Documented By: HARMONY Gabapentin (Gabapentin 600 Mg Tab) 1,200 mg PO NOW ONE Stop: 08/26/22 01:56 Last Admin: 08/26/22 03:05 Dose: 1,200 mg Documented By: GIGI Gabapentin (Gabapentin 600 Mg Tab) 600 mg PO Q6H [facility] Stop: 08/26/22 16:01 Last Admin: 08/26/22 16:18 Dose: 600 mg Documented By: Admin: 08/26/22 10:25 Dose: 600 mg Documented By: HARMONY Gabapentin (Gabapentin 600 Mg Tab) 600 mg PO Q8H [facility] Stop: 08/27/22 16:01 Last Admin: 08/27/22 08:04 Dose: 600 mg Documented By: Admin: 08/27/22 00:19 Dose: 600 mg Documented By: GIGI Multivitamins 10 ml/ Thiamine HCl 100 mg/ Folic Acid 1 mg/Sodium Chloride 1,011.2 mls @ 500 mls/hr IV .Q2H2M ONE Stop: 08/26/22 00:13 Last Infusion: 08/26/22 00:49 Dose: 0 mls/hr Documented By: Admin: 08/25/22 22:47 Dose: 500 mls/hr Documented By: NAHUN Magnesium Sulfate/Dextrose (Magnesium Sulfate / D5w) 1 gm in 100 mls @ 100 m ls/hr IV NOW STA Stop: 08/26/22 00:49 Last Infusion: 08/26/22 03:09 Dose: 0 mls/hr Documented By: Admin: 08/26/22 01:00 Dose: 100 mls/hr Documented By: ALVINO Dextrose/Sodium Chloride (D5w And 1/2nss) 1,000 mls @ 125 mls/hr IV .Q8H [facility] Stop: 08/26/22 17:54 Last Infusion: 08/26/22 17:28 Dose: 0 mls/hr Documented By: Admin: 08/26/22 09:18 Dose: 125 mls/hr Documented By: Infusion: 08/26/22 09:18 Dose: 125 mls/hr Documented By: Admin: 08/26/22 02:43 Dose: 125 mls/hr Documented By: GIGI Thiamine HCl 100 mg/ Syringe 10 mls @ 2 mls/min IV QAM [facility] Stop: 09/25/22 08:59 Last Admin: 08/27/22 08:04 Dose: 2 mls/min Documented By: Admin: 08/26/22 07:44 Dose: 2 mls/min Documented By: HARMONY Folic Acid 1 mg/ Syringe 10 mls @ 5 mls/min IV QAM [facility] Stop: 09/25/22 08:59 Last Admin: 08/27/22 08:04 Dose: 5 mls/min Documented By: Admin: 08/26/22 07:45 Dose: 5 mls/min Documented By: HARMONY Famotidine 20 mg/ Syringe 5 mls @ 2.5 mls/min IV DAILY [facility] Stop: 09/25/22 08:59 Last Admin: 08/27/22 08:06 Dose: 2.5 mls/min Documented By: Admin: 08/26/22 09:18 Dose: 2.5 mls/min Documented By: HARMONY Ceftriaxone Sodium 2,000 mg/ (Dextrose) 70 mls @ 100 mls/hr IV Q24H [facility]; Protocol Stop: 09/02/22 23:29 Last Infusion: 08/27/22 01:46 Dose: 0 mls/hr Documented By: Admin: 08/27/22 00:19 Dose: 100 mls/hr Documented By: GIGI Magnesium Oxide (Magnesium Oxide 400 Mg Tab) 400 mg PO NOW ONE Stop: 08/26/22 02:46 Last Admin: 08/26/22 04:08 Dose: 400 mg Documented By: GIGI Magnesium Oxide (Magnesium Oxide 400 Mg Tab) 400 mg PO ONE ONE Stop: 08/26/22 07:17 Last Admin: 08/26/22 07:44 Dose: 400 mg Documented By: HARMONY Miscellaneous (Remove Nicoderm Patch) 1 each N/A DAILY@0859 [facility] Stop: 09/25/22 08:58 Last Admin: 08/27/22 08:06 Dose: 1 each Documented By: Admin: 08/26/22 08:42 Dose: 1 each Documented By: HARMONY Nicotine (Nicotine 14 Mg/24 Hr Patch) 14 mg TD QAM [facility] Stop: 09/25/22 08:59 Last Admin: 08/27/22 08:06 Dose: 14 mg Documented By: Admin: 08/26/22 09:18 Dose: 14 mg Documented By: HARMONY Ondansetron HCl (Ondansetron Inj 2 Mg/Ml 2 Ml Vial) 4 mg IV Q6H PRN PRN Reason: Nausea Stop: 09/25/22 01:54 Last Admin: 08/26/22 02:43 Dose: 4 mg Documented By: GIGI Potassium Chloride (Potassium Chloride 20 Meq/15 Ml Udc) 40 meq PO NOW STA Stop: 08/26/22 02:45 Last Admin: 08/26/22 04:08 Dose: 40 meq Documented By: GIGI Potassium Chloride (Potassium Chloride Crtab 20 Meq Tabcr) 40 meq PO NOW STA Stop: 08/26/22 07:16 Last Admin: 08/26/22 07:43 Dose: 40 meq Documented By: HARMONY Trazodone HCl (Trazodone Hcl 50 Mg Tab) 50 mg PO HS [facility] Stop: 09/25/22 20:59 Last Admin: 08/26/22 20:30 Dose: 50 mg Documented By: Discharge Plan Visit Data Chief Complaint: Alcohol Withdrawal Stated Complaint: SYNCOPAL EPISODE/DETOXING ED Provider: Manolo French Discharge Problem: Syncope, Alcohol dependence, Alcohol withdrawal, Hypomagnesemia Patient Disposition: Admitted As Inpatient Discharge Instructions Interventions: ED Discharge Assessment Last Done: 08/26/22 01:41
[2022-08-25] MEDS ORDERED: MULTI-VITAMIN INFUSION 10 ML, THIAMINE HCL 100 MG, FOLIC ACID 1 MG in SODIUM CHLORIDE 0... IV ONE (22:12)
[2022-08-25] MEDS ORDERED: chlordiazePOXIDE HCl 25 MG CAP PO ONE (22:12)
[2022-08-25 23:23] LABS: Troponin I High Sensitivity 5.9 pg/ml (0-20)
[2022-08-25 23:26] LABS: Hematocrit (blood only) 49.3 % (40.1-51.0); Hemoglobin 17.4 g/dl (14.0-18.0); Mean Corpuscular Hemoglobin 32.2 pg (25.0-34.0); Mean Corpuscular Hgb Conc 35.3 g/dL (32.0-36.0); Mean Corpuscular Volume 91.1 fL (80.0-100.0); Mean Platelet Volume 10.2 fL (9.4-12.4); Platelet Count 120 K/uL (130-400); RDW Coefficient of Variation 15.1 % (11.5-14.5); RDW Standard Deviation 49.5 fL (36.4-46.3); Red Blood Count 5.41 M/uL (4.63-6.08); White Blood Count 5.83 K/ul (4.8-10.8)
[2022-08-25 23:27] LABS: Albumin Level 3.5 gm/dl (3.4-5.0); BUN Creatinine Ratio 6.4 (10-20); Basophils # (auto) 0.03 K/uL (0-0.2); Basophils % (auto) 0.5 %; Bilirubin,Total 0.7 mg/dl (0.2-1.0); Calcium 8.9 mg/dl (8.5-10.1); Creatinine Clr Calc Pharmacy 124.4 ml/min; Eosinophils # (auto) 0.03 K/uL (0-0.50); Eosinophils % (auto) 0.5 %; Est GFR (Non-African American) 105.3 ml/min; Globulin 3.4 gm/dl (2.5-4.0); Immature Granulocytes # (auto) 0.02 K/uL (0.00-0.02); Immature Granulocytes % (auto) 0.3 %; Lymphocytes # (auto) 1.24 K/uL (1.2-3.4); Lymphocytes % (auto) 21.3 %; Magnesium 1.6 mg/dl (1.7-2.4); Monocytes # (auto) 0.27 K/uL (0.24-0.82); Monocytes % (auto) 4.6 %; Neutrophils # (auto) 4.24 K/uL (1.4-6.5); Neutrophils % (auto) 72.8 %; Phosphorus 2.6 mg/dl (2.5-4.9); Potassium 3.3 mmol/L (3.5-5.1); RBC Morphology Unremarkable; Total Protein 6.9 gm/dl (6.0-8.3)
[2022-08-25] MEDS ORDERED: Ativan PO Alcohol Withdrawal--Active Protocol PO PRN (23:50)
[2022-08-25] MEDS ORDERED: LORazepam 1 MG TAB PO PRN ×3 (23:50)
[2022-08-25] MEDS ORDERED: MAGNESIUM SULFATE / D5W 1 GM/100 ML BAG IV STA (23:50)
[2022-08-26] MEDS ORDERED: NITROGLYCERIN SL 0.4 MG/TAB TAB SL PRN (01:55)
[2022-08-26] MEDS ORDERED: GABAPENTIN 600 MG TAB PO ONE (01:55)
[2022-08-26] MEDS ORDERED: LORazepam 1 MG in SYRINGE 0 ML IV PRN (01:55)
[2022-08-26] MEDS ORDERED: cloNIDine HCL 0.1 MG TAB PO PRN (01:55)
[2022-08-26] MEDS ORDERED: GABAPENTIN 1200MG ALCOHOL WITHDRAWAL LOAD PO STA (01:55)
[2022-08-26] MEDS ORDERED: Ativan IV Alcohol Withdrawal--Active Protocol IV PRN (01:55)
[2022-08-26] MEDS ORDERED: LORazepam 2 MG in SYRINGE 0 ML IV PRN (01:55)
[2022-08-26] MEDS ORDERED: ONDANSETRON INJ 2 MG/ML 2 ML VIAL IV PRN (01:55)
[2022-08-26] MEDS ORDERED: LORazepam 3 MG in SYRINGE 0 ML IV PRN (01:55)
--- NOTE | 2022-08-26 02:32 | History and Physical Report ---
DATE OF ADMISSION: 08/26/2022. CHIEF COMPLAINT: Alcoholism, presyncope. HISTORY OF PRESENT ILLNESS: This is a 51-year-old male with a past medical history significant for mitral valve disorder, history of cervical intervascular disk displacement, cervicalgia, anxiety, ongoing tobacco abuse, depression, ongoing alcoholism, who presents with alcohol withdrawal and presyncope. The patient says he is drinking heavily again. He is drinking like two-thirds of a big bottle of vodka. He started binge drinking again 3 weeks ago and he started to cut back again. When he cut back he started feeling withdrawal symptoms and today in the evening, he took his trazodone dose, and he felt nauseous. He went to bathroom and he felt like passing out and he fell on his knees. He says he did not completely black out, but he thinks he felt like passing out, which brought him to the hospital. He is still not feeling good. He says he is feeling anxious on an d off. He has some vomiting at home, he has some headache, some dizziness. No blurred visions, no earache, no runny nose, no sore throat. He has smoker's cough. Once in a while, he gets short of breath. While coming to the hospital, he had some chest tightness, this comes and goes. No abdominal pain. Normal bowel and bladder movements. Hemodynamically stable in the ER. He was given banana bag and Librium in the ER. ALLERGIES: LATEX, BANANA, BEE VENOM, AND HONEY. PAST MEDICAL HISTORY: As mentioned above. PAST SURGICAL HISTORY: No surgical history on file. MEDICATIONS: The patient is taking trazodone 50 mg p.o. at bedtime. FAMILY HISTORY: Significant for no family history on file. SOCIAL HISTORY: , smokes 1 pack a day for many years. Alcohol, currently drinking two-thirds of a big bottle of vodka every day. Once in a while smokes marijuana. REVIEW OF SYSTEMS: As per HPI. Rest of the review of systems is negative. PHYSICAL EXAMINATION: GENERAL: The patient is of moderate build, not in acute distress. VITAL SIGNS: Temperature 37.1, pulse 78, respiratory rate 21, blood pressure 116/80, oxygen 92% on room air. HEENT: Pupils equal, round and reactive to light. Oral mucosa dry. NECK: No JVD, no neck masses. CARDIOVASCULAR: S1 and S2 heard. Regular rate and rhythm. No murmur, no gallop. RESPIRATORY SYSTEM: Normal AP diameter. No accessory muscle use. No wheezing, no crackles. ABDOMEN: Soft, bowel sounds present, nontender, no distention. CENTRAL NERVOUS SYSTEM: Cranial nerves II through XII grossly intact, nonfocal. EXTREMITIES: No edema, no erythema. LABORATORY DATA: WBC 5.8, hemoglobin 17.4, hematocrit 49.3, platelets 120. Sodium 139, potassium 3.3, chloride 103, bicarbonate 25, BUN 5, creatinine 0.7, serum glucose 90, calcium 8.9, phosphorus 2.6, magnesium 1.6, total bilirubin 0.7, AST 63, ALT 34, alkaline phosphatase 88. Troponin I high sensitivity 5.9. TSH is 0.75. Ethyl alcohol 53. SARS-CoV-2 rapid test negative. ASSESSMENT AND PLAN: This is a 51-year-old male who presents with alcoholism, alcohol withdrawal, and presyncope. 1. Presyncope: Possibly secondary to alcoholism. We will check orthostatics when stable. Possibly from dehydration. Getting fluids. Monitor in the tele and we will follow echocardiogram. Follow serial cardiac enzymes as also had some chest heaviness on and off. 2. Alcoholism, alcohol withdrawal: Placed on banana bag in the ER. Placed on gabapentin alcohol withdrawal protocol, IV Ativan p.r.n., IV thiamine, IV folic acid. Closely monitor for withdrawal. Clonidine p.r.n. 3. Hypokalemia and hypomagnesemia: Will replace. 4. Thrombocytopenia, most likely from alcoholism: We will follow the repeat labs. Platelets are 120. 5. Deep venous thrombosis prophylaxis: We will place him on Lovenox. We will monitor Platelets. Job ID: [id number] [facility]
[2022-08-26] MEDS: D5W AND 1/2NSS 1,000 ML IV SCH ×2 (02:43→09:18)
[2022-08-26] MEDS ORDERED: POTASSIUM CHLORIDE 20 MEQ/15 ML UDC PO STA (02:44)
[2022-08-26] MEDS ORDERED: MAGNESIUM OXIDE 400 MG TAB PO ONE ×2 (02:45→07:16)
[2022-08-26 06:22] LABS: Hematocrit (blood only) 48.1 % (40.1-51.0); Mean Corpuscular Hemoglobin 32.1 pg (25.0-34.0); Mean Corpuscular Hgb Conc 35.3 g/dL (32.0-36.0); Mean Corpuscular Volume 90.8 fL (80.0-100.0); Nucleated RBC # (auto) 0.02 K/uL (0-0); Nucleated RBC % (auto) 0.4 %; Platelet Count 106 K/uL (130-400); RDW Coefficient of Variation 15.1 % (11.5-14.5); RDW Standard Deviation 49.4 fL (36.4-46.3); White Blood Count 4.91 K/ul (4.8-10.8)
[2022-08-26 06:23] LABS: Troponin I High Sensitivity 5.2 pg/ml (0-20)
[2022-08-26 06:28] LABS: BUN Creatinine Ratio 6.6 (10-20); Calcium 8.3 mg/dl (8.5-10.1); Creatinine Clr Calc Pharmacy 127.6 ml/min; Est GFR (African American) 123.3 ml/min; Est GFR (Non-African American) 106.4 ml/min; Magnesium 1.8 mg/dl (1.7-2.4); Potassium 3.3 mmol/L (3.5-5.1)
[2022-08-26 06:38] LABS: Basophils # (auto) 0.02 K/uL (0-0.2); Basophils % (auto) 0.4 %; Eosinophils # (auto) 0.11 K/uL (0-0.50); Eosinophils % (auto) 2.2 %; Immature Granulocytes # (auto) 0.01 K/uL (0.00-0.02); Immature Granulocytes % (auto) 0.2 %; Lymphocytes # (auto) 2.32 K/uL (1.2-3.4); Lymphocytes % (auto) 47.3 %; Monocytes # (auto) 0.25 K/uL (0.24-0.82); Monocytes % (auto) 5.1 %; Neutrophils % (auto) 44.8 %; RBC Morphology Unremarkable
[2022-08-26] MEDS ORDERED: POTASSIUM CHLORIDE CRTAB 20 MEQ TABCR PO STA (07:15)
--- NOTE | 2022-08-26 07:18 | Hospitalist Progress Note ---
Date of Service August 26, 2022 Assessment & Plan (1) Alcohol dependence: (2) Alcohol withdrawal: Plan: This is a 51-year-old male who presents with alcoholism, alcohol withdrawal, and presyncope. 1. Presyncope: Possibly secondary to alcoholism. We will check orthostatics when stable. Possibly from dehydration. Getting fluids. Some chest heaviness on and off. Monitor in the tele and we will follow echocardiogram. Serial cardiac enzymes negative 2. Alcoholism, alcohol withdrawal: Received banana bag in the ER. Placed on gabapentin alcohol withdrawal protocol, IV Ativan p.r.n., IV thiamine, IV folic acid. Closely monitor for withdrawal. Clonidine p.r.n. 3. Hypokalemia and hypomagnesemia: Replace and monitor. 4. Thrombocytopenia, most likely from alcoholism: Follow the repeat labs. Platelets are 120 -> 109 DVT prophylaxis: Lovenox. We will monitor Platelets. Admission and Anticipated Discharge Date Admission Date: August 26, 2022 Subjective Pt seen in follow up of etoh withdrawal Currently laying in bed, resting, in no acute distress Denies fevers chills chest pain shortness of breath abdominal pain nausea or vomiting Currently no significant tremors and he is able to answer questions appropriately Review of Systems Review of Systems: All systems reviewed & are unremarkable except as noted in Subjective Physical Exam Physical Exam: GENERAL: The patient is of moderate build, not in acute distress. HEENT: NC/AT. Pupils equal, round and reactive to light. Oral mucosa dry. NECK: No JVD, no neck masses. CARDIOVASCULAR: S1 and S2 heard. Regular rate and rhythm. No murmur, no gallop. RESPIRATORY: Normal AP diameter. No accessory muscle use. No wheezing, no crackles. ABDOMEN: Soft, bowel sounds present, nontender, no distention. NEURO:Alert oriented, answers questions appropriately, moves extremities EXTREMITIES: No edema, no erythema. Results & Data Results & Data ([facility]) Vital Signs (Past 12 Hours) Vital Signs Temp Pulse Resp BP BP Pulse Ox O2 Del Method 08/26/22 02:15 Nasal Cannula 08/26/22 02:00 94 Nasal Cannula 08/26/22 01:57 37.1 C 18 133/72 88 L Room Air 08/26/22 01:00 65 19 137/80 91 Room Air 08/26/22 00:00 78 21 116/80 92 Room Air 08/25/22 23:42 65 17 134/70 92 Room Air 08/25/22 22:00 60 16 124/81 95 Room Air 08/25/22 21:44 37.1 C 64 18 131/74 94 Room Air O2 Flow Rate 08/26/22 02:15 2 08/26/22 02:00 2 08/26/22 01:57 08/26/22 01:00 08/26/22 00:00 08/25/22 23:42 08/25/22 22:00 08/25/22 21:44 Laboratory Results 08/26/22 08/26/22 08/25/22 Range/Units 05:31 05:31 22:46 WBC 4.91 (4.8-10.8) K/ul RBC 5.30 (4.63-6.08) M/uL Hgb 17.0 (14.0-18.0) g/dl Hct 48.1 (40.1-51.0) % MCV 90.8 (80.0-100.0) fL MCH 32.1 (25.0-34.0) pg MCHC 35.3 (32.0-36.0) g/dL RDW Std Deviation 49.4 H (36.4-46.3) fL RDW Coeff of Kristopher 15.1 H (11.5-14.5) % Plt Count 106 L (130-400) K/uL MPV 11.0 (9.4-12.4) fL Immature Gran % (Auto) 0.2 % Neut % (Auto) 44.8 % Lymph % (Auto) 47.3 % Berks % (Auto) 5.1 % Eos % (Auto) 2.2 % Baso % (Auto) 0.4 % Neut # (Auto) 2.20 (1.4-6.5) K/uL Lymph # (Auto) 2.32 (1.2-3.4) K/uL Berks # (Auto) 0.25 (0.24-0.82) K/uL Eos # (Auto) 0.11 (0-0.50) K/uL Baso # (Auto) 0.02 (0-0.2) K/uL Immature Gran # (Auto) 0.01 (0.00-0.02) K/uL Absolute Nucleated RBC 0.02 H (0-0) K/uL Nucleated RBC % (auto) 0.4 % RBC Morphology Unremarkable Sodium 139 (136-145) mmol/L Potassium 3.3 L (3.5-5.1) mmol/L Chloride 106 (98-107) mmol/L Carbon Dioxide 27 (21-32) mmol/L Anion Gap 6 (3-11) BUN 5 L (6-23) mg/dl Creatinine 0.76 (0.6-1.4) mg/dl Est Cr Clr Drug Dosing 127.6 ml/min Est GFR ( Amer) 123.3 ml/min Est GFR (Non-Af Amer) 106.4 ml/min BUN/Creatinine Ratio 6.6 L (10-20) Glucose 94 (70-99(Fasting)) mg/dl Calcium 8.3 L (8.5-10.1) mg/dl Phosphorus (2.5-4.9) mg/dl Magnesium 1.8 (1.7-2.4) mg/dl Total Bilirubin (0.2-1.0) mg/dl AST (13-39) U/L ALT (7-52) U/L Alkaline Phosphatase (34-104) U/L Troponin I High Sens 5.2 (0-20) pg/ml Total Protein (6.0-8.3) gm/dl Albumin (3.4-5.0) gm/dl Globulin (2.5-4.0) gm/dl Albumin/Globulin Ratio (0.9-2) TSH (0.300-4.500) uIu/ml Ethyl Alcohol mg/dL 53.1 H (<10.0) mg/dl SARS-CoV-2, RNA, NAAT (NEGATIVE) 08/25/22 08/25/22 08/25/22 Range/Units 22:46 22:46 22:46 WBC 5.83 (4.8-10.8) K/ul RBC 5.41 (4.63-6.08) M/uL Hgb 17.4 (14.0-18.0) g/dl Hct 49.3 (40.1-51.0) % MCV 91.1 (80.0-100.0) fL MCH 32.2 (25.0-34.0) pg MCHC 35.3 (32.0-36.0) g/dL RDW Std Deviation 49.5 H (36.4-46.3) fL RDW Coeff of Kristopher 15.1 H (11.5-14.5) % Plt Count 120 L (130-400) K/uL MPV 10.2 (9.4-12.4) fL Immature Gran % (Auto) 0.3 % Neut % (Auto) 72.8 % Lymph % (Auto) 21.3 % Berks % (Auto) 4.6 % Eos % (Auto) 0.5 % Baso % (Auto) 0.5 % Neut # (Auto) 4.24 (1.4-6.5) K/uL Lymph # (Auto) 1.24 (1.2-3.4) K/uL Berks # (Auto) 0.27 (0.24-0.82) K/uL Eos # (Auto) 0.03 (0-0.50) K/uL Baso # (Auto) 0.03 (0-0.2) K/uL Immature Gran # (Auto) 0.02 (0.00-0.02) K/uL Absolute Nucleated RBC (0-0) K/uL Nucleated RBC % (auto) % RBC Morphology Unremarkable Sodium 139 (136-145) mmol/L Potassium 3.3 L (3.5-5.1) mmol/L Chloride 103 (98-107) mmol/L Carbon Dioxide 25 (21-32) mmol/L Anion Gap 11 (3-11) BUN 5 L (6-23) mg/dl Creatinine 0.78 (0.6-1.4) mg/dl Est Cr Clr Drug Dosing 124.4 ml/min Est GFR ( Amer) 122.0 ml/min Est GFR (Non-Af Amer) 105.3 ml/min BUN/Creatinine Ratio 6.4 L (10-20) Glucose 90 (70-99(Fasting)) mg/dl Calcium 8.9 (8.5-10.1) mg/dl Phosphorus 2.6 (2.5-4.9) mg/dl Magnesium 1.6 L (1.7-2.4) mg/dl Total Bilirubin 0.7 (0.2-1.0) mg/dl AST 63 H (13-39) U/L ALT 34 (7-52) U/L Alkaline Phosphatase 88 (34-104) U/L Troponin I High Sens 5.9 (0-20) pg/ml Total Protein 6.9 (6.0-8.3) gm/dl Albumin 3.5 (3.4-5.0) gm/dl Globulin 3.4 (2.5-4.0) gm/dl Albumin/Globulin Ratio 1.0 (0.9-2) TSH 0.757 (0.300-4.500) uIu/ml Ethyl Alcohol mg/dL (<10.0) mg/dl SARS-CoV-2, RNA, NAAT (NEGATIVE) 08/25/22 Range/Units 22:30 WBC (4.8-10.8) K/ul RBC (4.63-6.08) M/uL Hgb (14.0-18.0) g/dl Hct (40.1-51.0) % MCV (80.0-100.0) fL MCH (25.0-34.0) pg MCHC (32.0-36.0) g/dL RDW Std Deviation (36.4-46.3) fL RDW Coeff of Kristopher (11.5-14.5) % Plt Count (130-400) K/uL MPV (9.4-12.4) fL Immature Gran % (Auto) % Neut % (Auto) % Lymph % (Auto) % [place] % (Auto) % Eos % (Auto) % Baso % (Auto) % Neut # (Auto) (1.4-6.5) K/uL Lymph # (Auto) (1.2-3.4) K/uL [place] # (Auto) (0.24-0.82) K/uL Eos # (Auto) (0-0.50) K/uL Baso # (Auto) (0-0.2) K/uL Immature Gran # (Auto) (0.00-0.02) K/uL Absolute Nucleated RBC (0-0) K/uL Nucleated RBC % (auto) % RBC Morphology Sodium (136-145) mmol/L Potassium (3.5-5.1) mmol/L Chloride (98-107) mmol/L Carbon Dioxide (21-32) mmol/L Anion Gap (3-11) BUN (6-23) mg/dl Creatinine (0.6-1.4) mg/dl Est Cr Clr Drug Dosing ml/min Est GFR ( Amer) ml/min Est GFR (Non-Af Amer) ml/min BUN/Creatinine Ratio (10-20) Glucose (70-99(Fasting)) mg/dl Calcium (8.5-10.1) mg/dl Phosphorus (2.5-4.9) mg/dl Magnesium (1.7-2.4) mg/dl Total Bilirubin (0.2-1.0) mg/dl AST (13-39) U/L ALT (7-52) U/L Alkaline Phosphatase (34-104) U/L Troponin I High Sens (0-20) pg/ml Total Protein (6.0-8.3) gm/dl Albumin (3.4-5.0) gm/dl Globulin (2.5-4.0) gm/dl Albumin/Globulin Ratio (0.9-2) TSH (0.300-4.500) uIu/ml Ethyl Alcohol mg/dL (<10.0) mg/dl SARS-CoV-2, RNA, NAAT NEGATIVE (NEGATIVE) Medications Administered Current Inpatient Medications Clonidine HCl (Clonidine Hcl 0.1 Mg Tab) 0.1 mg PO Q4H PRN PRN Reason: Hypertension Stop: 09/25/22 01:54 Enoxaparin Sodium (Enoxaparin Inj 40 Mg/0.4 Ml Syr) 40 mg SQ QAM [facility] Stop: 09/25/22 08:59 Gabapentin (Gabapentin 600 Mg Tab) 600 mg PO Q6H [facility] Stop: 08/26/22 16:01 Gabapentin (Gabapentin 600 Mg Tab) 600 mg PO Q8H [facility] Stop: 08/27/22 16:01 Gabapentin (Gabapentin 600 Mg Tab) 600 mg PO Q12H [facility] Stop: 08/28/22 18:01 Gabapentin (Gabapentin 600 Mg Tab) 600 mg PO Q24H [facility] Stop: 08/29/22 18:01 Dextrose/Sodium Chloride (D5w And 1/2nss) 1,000 mls @ 125 mls/hr IV .Q8H [facility] Stop: 08/26/22 17:54 Last Admin: 08/26/22 02:43 Dose: 125 mls/hr Thiamine HCl 100 mg/ Syringe 10 mls @ 2 mls/min IV QAM [facility] Stop: 09/25/22 08:59 Folic Acid 1 mg/ Syringe 10 mls @ 5 mls/min IV QAM [facility] Stop: 09/25/22 08:59 Lorazepam 1 mg/ Syringe 1 mls @ 2 mls/min IV UD PRN; Protocol PRN Reason: EtOH Withdrawal AWSS Score 6,7 Stop: 09/25/22 01:54 Lorazepam 2 mg/ Syringe 2 mls @ 2 mls/min IV UD PRN; Protocol PRN Reason: EtOH Withdrawal AWSS Score 8,9 Stop: 09/25/22 01:54 Lorazepam 3 mg/ Syringe 3 mls @ 2 mls/min IV ONCE PRN; Protocol PRN Reason: EtOH Withdrawal AWSS Score 10 & above Famotidine 20 mg/ Syringe 5 mls @ 2.5 mls/min IV DAILY [facility] Stop: 09/25/22 08:59 Magnesium Oxide (Magnesium Oxide 400 Mg Tab) 400 mg PO ONE ONE Stop: 08/26/22 07:17 Nitroglycerin (Nitroglycerin Sl 0.4 Mg/Tab Tab) 0.4 mg SL UD PRN PRN Reason: Chest Pain Stop: 09/25/22 01:54 Ondansetron HCl (Ondansetron Inj 2 Mg/Ml 2 Ml Vial) 4 mg IV Q6H PRN PRN Reason: Nausea Stop: 09/25/22 01:54 Last Admin: 08/26/22 02:43 Dose: 4 mg Potassium Chloride (Potassium Chloride Crtab 20 Meq Tabcr) 40 meq PO NOW STA Stop: 08/26/22 07:16 Trazodone HCl (Trazodone Hcl 50 Mg Tab) 50 mg PO HS [facility] Stop: 09/25/22 20:59
[2022-08-26] MEDS: THIAMINE HCL 100 MG in SYRINGE 9 ML IV SCH (07:44)
[2022-08-26] MEDS: ENOXAPARIN INJ 40 MG/0.4 ML SYR SQ SCH (07:44)
[2022-08-26] MEDS: FOLIC ACID 1 MG in SYRINGE 9.8 ML IV SCH (07:45)
[2022-08-26] MEDS: NICOTINE 14 MG/24 HR PATCH TD SCH (09:18)
[2022-08-26] MEDS: FAMOTIDINE 20 MG in SYRINGE 3 ML IV SCH (09:18)
[2022-08-26] MEDS: GABAPENTIN 600 MG TAB PO SCH ×2 (10:25→16:18)
[2022-08-26] MEDS ORDERED: traZODone HCL 50 MG TAB PO SCH (21:00)
[2022-08-26] MEDS ORDERED: cefTRIAXone SODIUM 2,000 MG in DEXTROSE 5% 50 ML IV SCH (23:30)
[2022-08-27] MEDS: DOXYCYCLINE HYCLATE 100 MG CAP PO SCH ×2 (00:19→08:04)
[2022-08-27] MEDS: GABAPENTIN 600 MG TAB PO SCH ×2 (00:19→08:04)
[2022-08-27 07:02] LABS: Hematocrit (blood only) 50.7 % (40.1-51.0); Hemoglobin 17.8 g/dl (14.0-18.0); Mean Corpuscular Hemoglobin 32.3 pg (25.0-34.0); Mean Corpuscular Hgb Conc 35.1 g/dL (32.0-36.0); Mean Platelet Volume 12.1 fL (9.4-12.4); Platelet Count 89 K/uL (130-400); Platelet Estimate Decreased (Normal); RDW Coefficient of Variation 14.7 % (11.5-14.5); Red Blood Count 5.51 M/uL (4.63-6.08); White Blood Count 4.94 K/ul (4.8-10.8)
[2022-08-27 07:12] LABS: BUN Creatinine Ratio 8.8 (10-20); Calcium 8.7 mg/dl (8.5-10.1); Creatinine Clr Calc Pharmacy 121.3 ml/min; Est GFR (African American) 120.7 ml/min; Est GFR (Non-African American) 104.2 ml/min; Magnesium 1.8 mg/dl (1.7-2.4); Phosphorus 2.5 mg/dl (2.5-4.9)
[2022-08-27] MEDS: THIAMINE HCL 100 MG in SYRINGE 9 ML IV SCH (08:04)
[2022-08-27] MEDS: FOLIC ACID 1 MG in SYRINGE 9.8 ML IV SCH (08:04)
[2022-08-27] MEDS: ENOXAPARIN INJ 40 MG/0.4 ML SYR SQ SCH (08:04)
[2022-08-27] MEDS: FAMOTIDINE 20 MG in SYRINGE 3 ML IV SCH (08:06)
[2022-08-27] MEDS: NICOTINE 14 MG/24 HR PATCH TD SCH (08:06)
--- NOTE | 2022-08-27 08:19 | Hospitalist Progress Note ---
Date of Service August 27, 2022 Assessment & Plan (1) Alcohol dependence: (2) Alcohol withdrawal: Plan: This is a 51-year-old male who presents with alcoholism, alcohol withdrawal, and presyncope. 1. Presyncope: Possibly secondary to alcoholism. Possibly from dehydration. Received fluids. Some chest heaviness on and off. Now denies any chest pain or heaviness. Monitored in the tele and reviewed echocardiogram. Serial cardiac enzymes negative 2. Alcoholism, alcohol withdrawal: Received banana bag in the ER. Placed on gabapentin alcohol withdrawal protocol, IV Ativan p.r.n., IV thiamine, IV folic acid. Closely monitor for withdrawal. Clonidine p.r.n. Patient is doing well overall. He plans to follow-up with counseling as outpatient. Inquiring about discharge. 3. Hypokalemia and hypomagnesemia: Replace and monitor. 4. Thrombocytopenia, most likely from alcoholism: Follow the repeat labs. Platelets are 120 -> 109 DVT prophylaxis: Lovenox. We will monitor Platelets. Admission and Anticipated Discharge Date Admission Date: August 26, 2022 Subjective Pt seen in follow up of etoh withdrawal Currently laying in bed, resting, in no acute distress Denies fevers chills chest pain shortness of breath abdominal pain nausea or vomiting Currently no tremors and he is able to answer questions appropriately Small wound on right toe, patient reports history of ingrown toenail Patient feels well overall, plans to follow-up as outpatient with counseling. He is inquiring about discharge. Review of Systems Review of Systems: All systems reviewed & are unremarkable except as noted in Subjective Physical Exam Physical Exam: GENERAL: The patient is of moderate build, not in acute distress. HEENT: NC/AT. Pupils equal, round and reactive to light. Oral mucosa dry. NECK: No JVD, no neck masses. CARDIOVASCULAR: S1 and S2 heard. Regular rate and rhythm. No murmur, no gallop. RESPIRATORY: Normal AP diameter. No accessory muscle use. No wheezing, no crackles. ABDOMEN: Soft, bowel sounds present, nontender, no distention. NEURO:Alert oriented, answers questions appropriately, moves extremities EXTREMITIES: No edema, no erythema. Results & Data Results & Data ([facility]) Vital Signs (Past 12 Hours) Vital Signs Temp Pulse Pulse Resp BP BP Pulse Ox 08/27/22 07:30 08/27/22 07:02 36.8 C 56 L 16 142/85 H 92 08/27/22 07:00 56 L 08/26/22 22:08 55 L 08/27/22 02:42 36.9 C 54 L 18 120/73 93 08/26/22 22:58 36.9 C 55 L 18 135/81 92 O2 Del Method 08/27/22 07:30 Room Air 08/27/22 07:02 Room Air 08/27/22 07:00 08/26/22 22:08 08/27/22 02:42 Room Air 08/26/22 22:58 Room Air Laboratory Results 08/27/22 08/27/22 08/26/22 Range/Units 05:47 05:47 20:10 WBC 4.94 (4.8-10.8) K/ul RBC 5.51 (4.63-6.08) M/uL Hgb 17.8 (14.0-18.0) g/dl Hct 50.7 (40.1-51.0) % MCV 92.0 (80.0-100.0) fL MCH 32.3 (25.0-34.0) pg MCHC 35.1 (32.0-36.0) g/dL RDW Std Deviation 50.0 H (36.4-46.3) fL RDW Coeff of Kristopher 14.7 H (11.5-14.5) % Plt Count 89 L (130-400) K/uL MPV 12.1 (9.4-12.4) fL Platelet Estimate Decreased L (Normal) Sodium 139 (136-145) mmol/L Potassium 4.0 D (3.5-5.1) mmol/L Chloride 106 (98-107) mmol/L Carbon Dioxide 27 (21-32) mmol/L Anion Gap 6 (3-11) BUN 7 (6-23) mg/dl Creatinine 0.80 (0.6-1.4) mg/dl Est Cr Clr Drug Dosing 121.3 ml/min Est GFR ( Amer) 120.7 ml/min Est GFR (Non-Af Amer) 104.2 ml/min BUN/Creatinine Ratio 8.8 L (10-20) Glucose 82 (70-99(Fasting)) mg/dl POC Glucose 96 (70-99) mg/dl Calcium 8.7 (8.5-10.1) mg/dl Phosphorus 2.5 (2.5-4.9) mg/dl Magnesium 1.8 (1.7-2.4) mg/dl Troponin I High Sens (0-20) pg/ml 08/26/22 Range/Units 10:42 WBC (4.8-10.8) K/ul RBC (4.63-6.08) M/uL Hgb (14.0-18.0) g/dl Hct (40.1-51.0) % MCV (80.0-100.0) fL MCH (25.0-34.0) pg MCHC (32.0-36.0) g/dL RDW Std Deviation (36.4-46.3) fL RDW Coeff of Kristopher (11.5-14.5) % Plt Count (130-400) K/uL MPV (9.4-12.4) fL Platelet Estimate (Normal) Sodium (136-145) mmol/L Potassium (3.5-5.1) mmol/L Chloride (98-107) mmol/L Carbon Dioxide (21-32) mmol/L Anion Gap (3-11) BUN (6-23) mg/dl Creatinine (0.6-1.4) mg/dl Est Cr Clr Drug Dosing ml/min Est GFR ( Amer) ml/min Est GFR (Non-Af Amer) ml/min BUN/Creatinine Ratio (10-20) Glucose (70-99(Fasting)) mg/dl POC Glucose (70-99) mg/dl Calcium (8.5-10.1) mg/dl Phosphorus (2.5-4.9) mg/dl Magnesium (1.7-2.4) mg/dl Troponin I High Sens 6.3 (0-20) pg/ml Medications Administered Current Inpatient Medications Clonidine HCl (Clonidine Hcl 0.1 Mg Tab) 0.1 mg PO Q4H PRN PRN Reason: Hypertension Stop: 09/25/22 01:54 Doxycycline Hyclate (Doxycycline Hyclate 100 Mg Cap) 100 mg PO BID [facility] Stop: 09/02/22 23:29 Last Admin: 08/27/22 08:04 Dose: 100 mg Enoxaparin Sodium (Enoxaparin Inj 40 Mg/0.4 Ml Syr) 40 mg SQ QAM [facility] Stop: 09/25/22 08:59 Last Admin: 08/27/22 08:04 Dose: 40 mg Gabapentin (Gabapentin 600 Mg Tab) 600 mg PO Q8H [facility] Stop: 08/27/22 16:01 Last Admin: 08/27/22 08:04 Dose: 600 mg Gabapentin (Gabapentin 600 Mg Tab) 600 mg PO Q12H [facility] Stop: 08/28/22 18:01 Gabapentin (Gabapentin 600 Mg Tab) 600 mg PO Q24H [facility] Stop: 08/29/22 18:01 Thiamine HCl 100 mg/ Syringe 10 mls @ 2 mls/min IV QAM [facility] [place] Stop: 09/25/22 08:59 Last Admin: 08/27/22 08:04 Dose: 2 mls/min Folic Acid 1 mg/ Syringe 10 mls @ 5 mls/min IV QAM [facility] [place] Stop: 09/25/22 08:59 Last Admin: 08/27/22 08:04 Dose: 5 mls/min Lorazepam 1 mg/ Syringe 1 mls @ 2 mls/min IV UD PRN; Protocol PRN Reason: EtOH Withdrawal AWSS Score 6,7 Stop: 09/25/22 01:54 Lorazepam 2 mg/ Syringe 2 mls @ 2 mls/min IV UD PRN; Protocol PRN Reason: EtOH Withdrawal AWSS Score 8,9 Stop: 09/25/22 01:54 Lorazepam 3 mg/ Syringe 3 mls @ 2 mls/min IV ONCE PRN; Protocol PRN Reason: EtOH Withdrawal AWSS Score 10 & above Famotidine 20 mg/ Syringe 5 mls @ 2.5 mls/min IV DAILY [facility] [place] Stop: 09/25/22 08:59 Last Admin: 08/27/22 08:06 Dose: 2.5 mls/min Ceftriaxone Sodium 2,000 mg/ (Dextrose) 70 mls @ 100 mls/hr IV Q24H [facility] [place]; Protocol Stop: 09/02/22 23:29 Last Infusion: 08/27/22 01:46 Dose: Infused Miscellaneous (Remove Nicoderm Patch) 1 each N/A DAILY@0859 [facility] [place] Stop: 09/25/22 08:58 Last Admin: 08/27/22 08:06 Dose: 1 each Nicotine (Nicotine 14 Mg/24 Hr Patch) 14 mg TD QAM [facility] Stop: 09/25/22 08:59 Last Admin: 08/27/22 08:06 Dose: 14 mg Nitroglycerin (Nitroglycerin Sl 0.4 Mg/Tab Tab) 0.4 mg SL UD PRN PRN Reason: Chest Pain Stop: 09/25/22 01:54 Ondansetron HCl (Ondansetron Inj 2 Mg/Ml 2 Ml Vial) 4 mg IV Q6H PRN PRN Reason: Nausea Stop: 09/25/22 01:54 Last Admin: 08/26/22 02:43 Dose: 4 mg Trazodone HCl (Trazodone Hcl 50 Mg Tab) 50 mg PO HS [facility] Stop: 09/25/22 20:59 Last Admin: 08/26/22 20:30 Dose: 50 mg
--- NOTE | 2022-08-27 12:39 | Discharge Summary ---
Date of Service August 27, 2022 Admission HPI Per Admitting Provider This is a 51-year-old male with a past medical history significant for mitral valve disorder, history of cervical intervascular disk displacement, cervicalgia, anxiety, ongoing tobacco abuse, depression, ongoing alcoholism, who presents with alcohol withdrawal and presyncope. The patient says he is drinking heavily again. He is drinking like two-thirds of a big bottle of vodka. He started binge drinking again 3 weeks ago and he started to cut back again. When he cut back he started feeling withdrawal symptoms and today in the evening, he took his trazodone dose, and he felt nauseous. He went to bathroom and he felt like passing out and he fell on his knees. He says he did not completely black out, but he thinks he felt like passing out, which brought him to the hospital. He is still not feeling good. He says he is feeling anxious on an d off. He has some vomiting at home, he has some headache, some dizziness. No blurred visions, no earache, no runny nose, no sore throat. He has smoker's cough. Once in a while, he gets short of breath. While coming to the hospital, he had some chest tightness, this comes and goes. No abdominal pain. Normal bowel and bladder movements. Hemodynamically stable in the ER. He was given banana bag and Librium in the ER. Admission Exam Per Admitting Provider GENERAL: The patient is of moderate build, not in acute distress. VITAL SIGNS: Temperature 37.1, pulse 78, respiratory rate 21, blood pressure 116/80, oxygen 92% on room air. HEENT: Pupils equal, round and reactive to light. Oral mucosa dry. NECK: No JVD, no neck masses. CARDIOVASCULAR: S1 and S2 heard. Regular rate and rhythm. No murmur, no gallop. RESPIRATORY SYSTEM: Normal AP diameter. No accessory muscle use. No wheezing, no crackles. ABDOMEN: Soft, bowel sounds present, nontender, no distention. CENTRAL NERVOUS SYSTEM: Cranial nerves II through XII grossly intact, nonfocal. EXTREMITIES: No edema, no erythema. Principal Diagnosis Alcohol abuse, alcohol withdrawal Discharge Exam GENERAL: The patient is of moderate build, not in acute distress. HEENT: NC/AT. Pupils equal, round and reactive to light. Oral mucosa dry. NECK: No JVD, no neck masses. CARDIOVASCULAR: S1 and S2 heard. Regular rate and rhythm. No murmur, no gallop. RESPIRATORY: Normal AP diameter. No accessory muscle use. No wheezing, no crackles. ABDOMEN: Soft, bowel sounds present, nontender, no distention. NEURO:Alert oriented, answers questions appropriately, moves extremities EXTREMITIES: No edema, no erythema. Discharge Data Allergies Allergy/AdvReac Type Severity Reaction Status Date / Time latex Allergy Intermediate BLISTERS Unverified 06/28/22 07:57 banana Allergy HIVES Verified 06/28/22 07:57 bee venom protein (honey bee) Allergy HIVES Verified 06/28/22 07:57 honey Allergy HIVES Verified 06/28/22 07:57 Consultations 08/25/22 23:50 ED Decision to Admit Stat Hospital Course (1) Alcohol dependence: (2) Alcohol withdrawal: This is a 51-year-old male who presents with alcoholism, alcohol withdrawal, and presyncope. 1. Presyncope: Possibly secondary to alcoholism. Possibly from dehydration. Received fluids. Some chest heaviness on and off. Now denies any chest pain or heaviness. Monitored in the tele and reviewed echocardiogram. Serial cardiac enzymes negative Feeling well and no other episodes of syncope noted in the hospital. 2. Alcoholism, alcohol withdrawal: Received banana bag in the ER. Placed on gabapentin alcohol withdrawal protocol, IV Ativan p.r.n., IV thiamine, IV folic acid. Closely monitor for withdrawal. Clonidine p.r.n. Patient is doing well overall. He plans to follow-up with counseling as outpatient. Inquiring about discharge. 3. Hypokalemia and hypomagnesemia: Replace and monitor. 4. Thrombocytopenia, most likely from alcoholism: Follow the repeat labs. Platelets are 120 -> 109 Total Time Total Time Spent Total Time Spent (In Minutes): 35 Discharge Plan Discharge Items Patient Disposition: Home - Self-Care Reason For Visit: ALCOHOL WITHDRAWAL Discharge Diagnosis: Alcohol abuse, alcohol withdrawal Activity: Per Instructions section Non-emergency contact: Primary Care Provider Call non-emergency contact if: you have any medication questions and your symptoms worsen Follow-up/Referrals: Roby Louie MD [Primary Care Provider] - Diet: Heart Healthy Addtl Attending Provider Instructions: Follow-up with your primary care provider within 1 week. Take thiamine and folic acid daily. Follow-up with outpatient counseling as discussed. It is recommended that you see check services clerk for your right toe/toenail. In the meantime, take Keflex, antibiotic, as prescribed. It is crucial that you abstain from alcohol. Pending Studies at Discharge: No Stand-Alone Forms: [facility], Smoking Cessation Medications and DC Order Prescriptions: New folic acid 1 mg tablet 1 mg PO DAILY Qty: 30 0RF thiamine HCl (vitamin B1) 100 mg tablet 100 mg PO DAILY Qty: 30 0RF cephalexin 500 mg capsule 500 mg PO QID 5 Days Qty: 20 0RF Continued trazodone 50 mg Tablet 50 mg PO HS Discharge Orders: Discharge Order (Routine); Ordered 08/27/22 Ordered By: Chemo Alberto Admission Data Admit Date/Time: 08/26/22 00:55 Attending Provider: Chemo Alberto Admit Provider: Humphrey Winter Primary Care Provider: Roby Louie Other Providers: Humphrey Winter
--- NOTE | 2022-08-27 22:42 | Electrocardiogram Report ---
Test Reason : Blood Pressure : / mmHG Vent. Rate : 057 BPM Atrial Rate : 057 BPM P-R Int : 146 ms QRS Dur : 094 ms QT Int : 480 ms P-R-T Axes : 066 078 065 degrees QTc Int : 467 ms Poor data quality, interpretation may be adversely affected Sinus bradycardia Septal infarct , age undetermined Abnormal ECG No previous ECGs available Confirmed by Rafi Ross ([id number]) on 08/27/2022 10:41:48 PM Referred By: REFERRED SELF Confirmed By:Rafi Ross
[2022-08-28] MEDS ORDERED: GABAPENTIN 600 MG TAB PO SCH (06:00)
--- NOTE | 2022-08-28 20:35 | Electrocardiogram Report ---
Test Reason : Blood Pressure : / mmHG Vent. Rate : 063 BPM Atrial Rate : 063 BPM P-R Int : 134 ms QRS Dur : 098 ms QT Int : 456 ms P-R-T Axes : 067 086 088 degrees QTc Int : 466 ms Normal sinus rhythm When compared with ECG of 25-AUG-2022 21:48, Criteria for Septal infarct no longer present Confirmed by Rafi Ross ([id number]) on 08/28/2022 8:34:55 PM Referred By: REFERRED SELF Confirmed By:Rafi Ross
[2022-08-29] MEDS ORDERED: GABAPENTIN 600 MG TAB PO SCH (18:00)
== END 2022-08-27 13:59 | disposition home or self-care (01) | DRG 897 ==
LOC: ED 21:41 → 2W 08-26 00:55

== ENCOUNTER 2023-08-16 12:42 | Inpatient (IN) ==
[2023-08-16] MEDS ORDERED: MULTI-VITAMIN INFUSION 10 ML, THIAMINE HCL 100 MG, FOLIC ACID 1 MG in SODIUM CHLORIDE 0... IV ONE (13:13)
[2023-08-16 13:52] LABS: Basophils # (auto) 0.03 K/uL (0.00-0.20); Basophils % (auto) 0.5 %; Eosinophils # (auto) 0.08 K/uL (0.00-0.50); Eosinophils % (auto) 1.4 %; Hematocrit (blood only) 55.3 % (42.0-52.0); Hemoglobin 20.2 g/dl (14.0-18.0); Immature Granulocytes # (auto) 0.02 K/uL (0.01-0.20); Immature Granulocytes % (auto) 0.4 %; Lymphocytes # (auto) 1.73 K/uL (1.20-3.40); Lymphocytes % (auto) 31.3 %; Mean Corpuscular Hemoglobin 33.6 pg (25.0-34.0); Mean Corpuscular Hgb Conc 36.5 g/dL (32.0-36.0); Mean Platelet Volume 10.1 fL (9.4-12.4); Monocytes # (auto) 0.29 K/uL (0.11-0.59); Monocytes % (auto) 5.3 %; Neutrophils # (auto) 3.37 K/uL (1.40-6.50); Neutrophils % (auto) 61.1 %; Platelet Count 139 K/uL (130-400); RDW Coefficient of Variation 14.5 % (11.5-14.5); Red Blood Count 6.01 M/uL (4.70-6.10); White Blood Count 5.52 K/ul (4.8-10.8)
[2023-08-16 13:58] LABS: Acetaminophen < 3 ug/ml (10-30); Salicylate < 3.0 mg/dl (3.0-30)
[2023-08-16] MEDS ORDERED: ONDANSETRON INJ 2 MG/ML 2 ML VIAL IV STA (14:03)
[2023-08-16 14:04] LABS: Albumin Globulin Ratio 1.2 (0.9-2); Albumin Level 4.2 gm/dl (3.4-5.0); BUN Creatinine Ratio 10.4 (10-20); Bilirubin,Total 0.6 mg/dl (0.2-1.0); Calcium 8.8 mg/dl (8.6-10.3); Creatinine Clr Calc Pharmacy 124.6 ml/min; Est GFR (African American) 121.8 ml/min; Est GFR (Non-African American) 105.1 ml/min; Globulin 3.6 gm/dl (2.5-4.0); Magnesium 1.8 mg/dl (1.7-2.4); Potassium 3.4 mmol/L (3.5-5.1); Total Protein 7.8 gm/dl (6.0-8.3)
[2023-08-16 14:15] LABS: Thyroid Stimulating Hormone 0.594 uIu/ml (0.300-4.500)
[2023-08-16] MEDS ORDERED: NICOTINE 21 MG/24 HR TDSY TD SCH (14:15)
[2023-08-16] MEDS ORDERED: LORazepam 2 MG/1 ML VIAL IV STA ×3 (14:22→19:48)
--- NOTE | 2023-08-16 14:24 | Emergency Department Note ---
Impression & Plan Alcohol withdrawal, Acute hypokalemia ED Provider Note HISTORY OF PRESENT ILLNESS: Patient is a 52-year-old male presenting requesting detox from alcohol. Patient reports he is a chronic alcoholic and drinks about a liter of vodka a day. His last drink was at 9 AM. He states that he was here few weeks ago but "left early." He states that in the last 3 to 4 days he has been unable to eat anything or tolerate anything by mouth secondary to how drunk he has been. He denies any previous history of seizures when he stops drinking. He is currently complaining of nausea and feeling shaky. Denies any chest pain or shortness of breath. ROS: as above PHYSICAL EXAM: Constitutional: Patient appears in no acute distress. HENT: Head: Normocephalic and atraumatic. Eyes: EOMI, PERRL Mouth/Throat: Mucous membranes moist. Neck: Trachea midline. Neck supple. Cardiovascular: RRR, No murmurs, rubs or gallops. Intact distal pulses. Pulmonary/Chest: No respiratory distress. Breath sounds clear and equal bilaterally. No wheezes or rales. Abdominal: Abdomen soft, no tenderness, rebound or guarding. Musculoskeletal: No edema, tenderness or deformity noted. Skin: Warm and dry. No rash, erythema, pallor or cyanosis Psychiatric: Appropriate mood and affect for situation. Neurological: Alert and keenly responsive. CN II-XII grossly intact, moving all extremities equally and fully. MDM: - Vitals signs stable. - History obtained via patient. Patient presents requesting alcohol withdrawal. Patient reports he drinks a liter of vodka a day. He is just admitted to the hospital last month for attempted detox but he left AGAINST MEDICAL ADVICE. He reports he would like to try to safely detox from alcohol up to become sober. Denies any history of withdrawal seizures. Currently complaining of nausea. - Chronic conditions affecting care: Chronic alcoholic abuse - Differential diagnoses include, but are not limited to: Electrolyte abnormality; intoxication; UTI - Order placed for continuous cardiac monitoring. At this time, monitor showed rate of 65 bpm with normal sinus rhythm, per my interpretation. - External medical records reviewed. Patient's discharge summary dated 07/17/2023 was reviewed. Patient was noted to have left AGAINST MEDICAL ADVICE during his stay. - EKG reviewed by myself showed normal sinus rhythm. Rate 67. QTc 434. No acute ischemic changes. - Laboratory workup interpreted by myself showed normal WBC; hypokalemia (K 3.4); elevated AST (70); negative acetaminophen/salicylate levels; elevated ethanol level (245) - Patient given banana bag in ER. - Given a nicotine patch, given his 1 PPD smoking history. - Given 4 mg IV zofran and 0.5 mg IV ativan for his withdrawal symptoms. - Discussion was had with social service agency director about patient's case and need for admission - Hospitalist consulted for admission - Patient admitted to [facility] for further evaluation and management. ASSESSMENT AND PLAN: Diagnosis: Alcohol withdrawal; hypokalemia Plan: admit Past Med/Surg History Medical History Alcohol dependence Alcohol withdrawal History of heroin abuse Surgical History No pertinent past surgical history Family History Other Family history non-contributory Social History Smoking Status: Current every day smoker Tobacco Type: Cigarettes Cigarettes Per Day: 1 pack; Second Hand Exposure: Yes; Do You Dip or Chew Tobacco: No; Hx Alcohol Use: Yes Alcohol type: hard liquor Hx Substance Use: Yes (10 years ago) Last Used Substance: Unknown Last Used Substance Other:: 08/24/22 Preferred Language: Tajik Communication Ability: Effective Radiator Cleaner Required: No Beliefs That Will Affect Care: None marital status: Life Partner Current Living Situation: Family and Significant Other Feels Safe at Home: Yes Assistive Devices: None Allergies Allergies Allergy/AdvReac Type Severity Reaction Status Date / Time latex Allergy Intermediate BLISTERS Verified 08/16/23 15:21 banana Allergy HIVES Verified 08/16/23 15:21 bee venom protein (honey bee) Allergy HIVES Verified 08/16/23 15:21 honey Allergy HIVES Verified 08/16/23 15:21 Home Meds Home Medications Medication Instructions Recorded Confirmed acetaminophen 500 mg tablet 1,000 mg PO Q6H PRN Pain 08/16/23 08/16/23 (Tylenol Extra Strength) gabapentin 400 mg capsule 400 mg PO TID 08/16/23 08/16/23 Results & Data (ED) Vital Signs Vital Signs - 24 hr 08/16/23 13:00 08/16/23 13:18 08/16/23 13:20 Temperature 36.2 C L Temperature Source Temporal Artery Scan Pulse Rate 76 Pulse Rate [Apical] 71 Respiratory Rate 20 16 Respiratory Effort / Characteristics Non-Labored Spontaneous Respiratory Depth Normal Respiratory Pattern Regular Blood Pressure 125/85 Blood Pressure [Left Arm] Blood Pressure Mean 98 Blood Pressure Mean [Left Arm] Pulse Oximetry 95 96 96 Oxygen Delivery Method Room Air Room Air Room Air Oxygen Flow Rate 0 Sepsis Recent Fever Within 48 Hours No Sepsis New/Unexplained Change in Mental Status N/A Sepsis Action Taken by Nursing No Action Required 08/16/23 13:52 08/16/23 15:33 Temperature Temperature Source Pulse Rate 60 Pulse Rate [Apical] 64 Respiratory Rate 18 Respiratory Effort / Characteristics Respiratory Depth Respiratory Pattern Blood Pressure Blood Pressure [Left Arm] 144/86 H Blood Pressure Mean Blood Pressure Mean [Left Arm] 105 Pulse Oximetry 96 Oxygen Delivery Method Room Air Oxygen Flow Rate Sepsis Recent Fever Within 48 Hours Sepsis New/Unexplained Change in Mental Status Sepsis Action Taken by Nursing Laboratory Data 08/16/23 13:23 08/16/23 13:23 Lab Results 08/16/23 08/16/23 08/16/23 Range/Units 13:23 13:23 13:23 WBC 5.52 (4.8-10.8) K/ul RBC 6.01 (4.70-6.10) M/uL Hgb 20.2 H (14.0-18.0) g/dl Hct 55.3 H (42.0-52.0) % MCV 92.0 (80.0-100.0) fL MCH 33.6 (25.0-34.0) pg MCHC 36.5 H (32.0-36.0) g/dL RDW Std Deviation 47.0 H (36.4-46.3) fL RDW Coeff of Kristopher 14.5 (11.5-14.5) % Plt Count 139 (130-400) K/uL MPV 10.1 (9.4-12.4) fL Immature Gran % (Auto) 0.4 % Neut % (Auto) 61.1 % Lymph % (Auto) 31.3 % Bracken % (Auto) 5.3 % Eos % (Auto) 1.4 % Baso % (Auto) 0.5 % Neut # (Auto) 3.37 (1.40-6.50) K/uL Lymph # (Auto) 1.73 (1.20-3.40) K/uL Bracken # (Auto) 0.29 (0.11-0.59) K/uL Eos # (Auto) 0.08 (0.00-0.50) K/uL Baso # (Auto) 0.03 (0.00-0.20) K/uL Immature Gran # (Auto) 0.02 (0.01-0.20) K/uL Sodium 142 (136-145) mmol/L Potassium 3.4 L (3.5-5.1) mmol/L Chloride 106 (98-107) mmol/L Carbon Dioxide 28 (21-32) mmol/L Anion Gap 8 (3-11) BUN 8 (6-23) mg/dl Creatinine 0.77 (0.6-1.4) mg/dl Est Cr Clr Drug Dosing 124.6 ml/min Est GFR ( Amer) 121.8 ml/min Est GFR (Non-Af Amer) 105.1 ml/min BUN/Creatinine Ratio 10.4 (10-20) Glucose 115 H (70-99(Fasting)) mg/dl Calcium 8.8 (8.6-10.3) mg/dl Magnesium 1.8 (1.7-2.4) mg/dl Total Bilirubin 0.6 (0.2-1.0) mg/dl AST 70 H (13-39) U/L ALT 42 (7-52) U/L Alkaline Phosphatase 110 H (34-104) U/L Total Protein 7.8 (6.0-8.3) gm/dl Albumin 4.2 (3.4-5.0) gm/dl Globulin 3.6 (2.5-4.0) gm/dl Albumin/Globulin Ratio 1.2 (0.9-2) TSH 0.594 (0.300-4.500) uIu/ml Salicylates < 3.0 L (3.0-30) mg/dl Acetaminophen < 3 L (10-30) ug/ml Ethyl Alcohol mg/dL (<10.0) mg/dl 08/16/23 Range/Units 13:23 WBC (4.8-10.8) K/ul RBC (4.70-6.10) M/uL Hgb (14.0-18.0) g/dl Hct (42.0-52.0) % MCV (80.0-100.0) fL MCH (25.0-34.0) pg MCHC (32.0-36.0) g/dL RDW Std Deviation (36.4-46.3) fL RDW Coeff of Kristopher (11.5-14.5) % Plt Count (130-400) K/uL MPV (9.4-12.4) fL Immature Gran % (Auto) % Neut % (Auto) % Lymph % (Auto) % Bracken % (Auto) % Eos % (Auto) % Baso % (Auto) % Neut # (Auto) (1.40-6.50) K/uL Lymph # (Auto) (1.20-3.40) K/uL Bracken # (Auto) (0.11-0.59) K/uL Eos # (Auto) (0.00-0.50) K/uL Baso # (Auto) (0.00-0.20) K/uL Immature Gran # (Auto) (0.01-0.20) K/uL Sodium (136-145) mmol/L Potassium (3.5-5.1) mmol/L Chloride (98-107) mmol/L Carbon Dioxide (21-32) mmol/L Anion Gap (3-11) BUN (6-23) mg/dl Creatinine (0.6-1.4) mg/dl Est Cr Clr Drug Dosing ml/min Est GFR ( Amer) ml/min Est GFR (Non-Af Amer) ml/min BUN/Creatinine Ratio (10-20) Glucose (70-99(Fasting)) mg/dl Calcium (8.6-10.3) mg/dl Magnesium (1.7-2.4) mg/dl Total Bilirubin (0.2-1.0) mg/dl AST (13-39) U/L ALT (7-52) U/L Alkaline Phosphatase (34-104) U/L Total Protein (6.0-8.3) gm/dl Albumin (3.4-5.0) gm/dl Globulin (2.5-4.0) gm/dl Albumin/Globulin Ratio (0.9-2) TSH (0.300-4.500) uIu/ml Salicylates (3.0-30) mg/dl Acetaminophen (10-30) ug/ml Ethyl Alcohol mg/dL 245.0 H (<10.0) mg/dl Administered Medications Nicotine (Nicotine 21 Mg/24 Hr Tdsy) 21 mg TD QAM BEATRICE Stop: 09/15/23 14:14 Last Admin: 08/16/23 14:06 Dose: 21 mg Documented By: BENITO Discontinued Medications Multivitamins 10 ml/ Thiamine HCl 100 mg/ Folic Acid 1 mg/Sodium Chloride 1,011.2 mls @ 500 mls/hr IV .Q2H2M ONE Stop: 08/16/23 15:14 Last Admin: 08/16/23 14:03 Dose: 500 mls/hr Documented By: BENITO Lorazepam (Lorazepam 2 Mg/1 Ml Vial) 0.5 mg IV NOW STA Stop: 08/16/23 14:23 Last Admin: 08/16/23 14:28 Dose: 0.5 mg Documented By: BENITO Lorazepam (Lorazepam 2 Mg/1 Ml Vial) 1 mg IV NOW STA Stop: 08/16/23 16:30 Last Admin: 08/16/23 16:41 Dose: 1 mg Documented By: ISABELLA Lorazepam (Lorazepam 2 Mg/1 Ml Vial) Confirm Administered Dose 2 mg .ROUTE .STK-MED ONE Stop: 08/16/23 16:39 Last Admin: 08/16/23 16:41 Dose: Not Given Documented By: ISABELLA Ondansetron HCl (Ondansetron Inj 2 Mg/Ml 2 Ml Vial) 4 mg IV NOW STA Stop: 08/16/23 14:04 Last Admin: 08/16/23 14:06 Dose: 4 mg Documented By: BENITO Potassium Chloride (Potassium Chloride Crtab 20 Meq Tabcr) 40 meq PO NOW STA Stop: 08/16/23 16:31 Last Admin: 08/16/23 16:41 Dose: Not Given Documented By: ISABELLA Potassium Chloride (Potassium Chloride 10 Meq Tabcr) Confirm Administered Dose 40 meq PO .STK-MED ONE Stop: 08/16/23 16:39 Last Admin: 08/16/23 16:41 Dose: 40 meq Documented By: ISABELLA Discharge Plan Visit Data Chief Complaint: Detox Request Stated Complaint: ALC WITHDRAWL ED Provider: Yary Hightower Discharge Problem: Alcohol withdrawal, Acute hypokalemia Forms Stand Alone Forms: [facility], Suicide Prevention Resources Prescriptions Prescriptions: No Action gabapentin 400 mg capsule 400 mg PO TID acetaminophen [Tylenol Extra Strength] 500 mg Tablet 1,000 mg PO Q6H PRN (Reason: Pain) Referrals Referrals: Roby Louie MD [Primary Care Provider] -
--- NOTE | 2023-08-16 16:07 | History & Physical Report ---
Date of Service August 16, 2023 Assessment & Plan (1) Alcohol withdrawal: (2) Alcohol dependence: Plan: Patient is 52-year-old male with PMH ETOH abuse, tobacco use presented to ER for alcohol withdrawal and wishes to quit drinking. Drinks 1L vodka daily. Last d rink reported at 09:00 today In ER vitals stable. EtOH level: 245 In ER given 0.5 mg Ativan IV, banana bag Patient with mild tremors, given Ativan 1 mg IV Alcohol withdrawal protocol with gabapentin, Ativan as needed Multivitamin, folic acid, thiamine daily CBC, CMP, magnesium, phosphorus labs in a.m. Case management for assistance with alcohol rehab (3) Acute hypokalemia: Plan: K: 3.4. Magnesium: 1.8 Replace and monitor (4) Elevated hemoglobin: Plan: H/H: /. Appears chronically elevated JAK2 in a.m. Start daily aspirin 81 mg (5) Elevated liver function tests: Plan: T. bili: 0.6, AST: 70 (109 on 07/22), ALT: 42 (62 on 07/22), alk phos: 110 (105 on 07/22) 07/16/2023: RUQ ultrasound: Cholelithiasis without acute cholecystitis. Borderline dilation common bile duct. Hepatic steatosis CMP in a.m. (6) Tobacco use: Plan: Nicotine patch Smoking cessation encouraged DVT Prophylaxis SCDs Full Code as per discussion with pt Follows with Dr Louie for routine care Pt was seen and care coordinated with Dr Lyle. See addendum History of Present Illness Chief Complaint: Alcohol withdrawal Primary Care Provider: Roby Louie MD Patient is 52-year-old male with PMH ETOH abuse, tobacco use presented to ER for alcohol withdrawal. History obtained from patient and inpatient and outpatient chart review. Patient states that he drinks 1L vodka daily. Last drink reported at 09:00 today. He voices wish to quit drinking. Patient states all he does is drink all day and doesn't consume other foods or liquids. States feels shaky in ER. He reports history tremors and anxiety with alcohol withdrawal in past. Denies history seizure, hallucinations, or DT's in past. Per chart review patient was hospitalized 07/15/23-07/17/23 for alcohol withdrawal and left AMA secondary to personal reasons. Denies fever/chills, diaphoresis, N/V/D/C, RODRIGUEZ, dizziness, syncope, vision changes, neck pain, CP, SOB, orthopnea, palpitations, cough, sore throat, rhinorrhea, abdominal pain, paresthesias, extremity weakness, extremity edema, rashes, urinary symptoms. Allergies Allergy/AdvReac Type Severity Reaction Status Date / Time latex Allergy Intermediate BLISTERS Verified 08/16/23 15:21 banana Allergy HIVES Verified 08/16/23 15:21 bee venom protein (honey bee) Allergy HIVES Verified 08/16/23 15:21 honey Allergy HIVES Verified 08/16/23 15:21 Home Medications Medication Instructions Recorded Confirmed Type acetaminophen 500 mg tablet 1,000 mg PO Q6H PRN Pain 08/16/23 08/16/23 History (Tylenol Extra Strength) gabapentin 400 mg capsule 400 mg PO TID 08/16/23 08/16/23 History Past Med/Surg History Medical History Alcohol dependence Alcohol withdrawal History of heroin abuse Tobacco use Surgical History No pertinent past surgical history Family History Other Family history non-contributory Social History Smoking Status: Current every day smoker Tobacco Type: Cigarettes Cigarettes Per Day: 1 pack; Second Hand Exposure: Yes; Do You Dip or Chew Tobacco: No; Hx Alcohol Use: Yes Alcohol type: hard liquor Hx Substance Use: Yes (10 years ago) Last Used Substance: Unknown Last Used Substance Other:: 08/24/22 Preferred Language: Khmer Communication Ability: Effective Digital Sales Executive Required: No Beliefs That Will Affect Care: None marital status: Life Partner Current Living Situation: Family and Significant Other Feels Safe at Home: Yes Assistive Devices: None Review of Systems Review of Systems: All systems reviewed & are unremarkable except as noted in HPI & below Physical Exam Physical Exam: General: no acute distress, WDWN Head: normocephalic, atraumatic Eyes: PERRL, conjunctiva non-injected, anicteric ENT: normal inspection external ears, nose, mucous membranes moist, +ETOH odor on breath Neck: supple, trachea midline Lungs: clear, no respiratory distress, no wheezing/rhonchi/rales CV: RRR, no murmur, no pretibial edema Abd: normal BS, soft, non-tender Ext: no cyanosis, no calf tenderness Neuro: A&O x 3, +mildly tremulous otherwise no focal deficits noted, normal affect Skin: warm, dry, bilateral hands and face red coloration Results & Data Results & Data Vital Signs (Past 12 Hours) Vital Signs Temp Pulse Pulse Resp BP BP Pulse Ox 08/16/23 15:33 64 18 144/86 H 96 08/16/23 13:52 60 08/16/23 13:20 71 16 96 08/16/23 13:18 96 08/16/23 13:00 36.2 C L 76 20 125/85 95 O2 Del Method O2 Flow Rate 08/16/23 15:33 Room Air 08/16/23 13:52 08/16/23 13:20 Room Air 08/16/23 13:18 Room Air 0 08/16/23 13:00 Room Air Laboratory Results Short CBC 08/16/23 Range/Units 13:23 WBC 5.52 (4.8-10.8) K/ul Hgb 20.2 H (14.0-18.0) g/dl Hct 55.3 H (42.0-52.0) % Plt Count 139 (130-400) K/uL BMP 08/16/23 13:23 Sodium 142 Potassium 3.4 L Chloride 106 Carbon Dioxide 28 BUN 8 Creatinine 0.77 Glucose 115 H Calcium 8.8 Liver Function 08/16/23 Range/Units 13:23 Total Bilirubin 0.6 (0.2-1.0) mg/dl AST 70 H (13-39) U/L ALT 42 (7-52) U/L Alkaline Phosphatase 110 H (34-104) U/L Albumin 4.2 (3.4-5.0) gm/dl Supervising Physician Co-Signing Physician Notes I have seen and discussed the case with the collaborating GIANA. I agree with the above H&P. I have reviewed and confirmed the patients medical history, the findings on physical examination, and the patients diagnosis and treatment plan with Kip FARIA and agree with the information documented. In short, Mr. Perry is a 52 year old gentleman with daily tobacco use and alcohol abuse disorder who is admitted for etoh detox. Patient also with elevated hgb--seems chronic, but unevaluated. PE notable for ruddish face and palmar erythema. Labs with minor AST elevation, low K. Plan for ETOH detox with gabapenin taper. Regarding polycythemia, concern about HCT at 55%, ordered am jak2 for completeness. likely related to chronic tobacco, started ASA. CBC in am s/p banana bag and fluids. Encourage op follow up/ plan as above. (2) Alcohol dependence Substance use status: unspecified alcohol-induced disorder Qualified Code(s): F10.29 - Alcohol dependence with unspecified alcohol-induced disorder
[2023-08-16] MEDS ORDERED: POTASSIUM CHLORIDE CRTAB 20 MEQ TABCR PO STA (16:30)
[2023-08-16] MEDS ORDERED: LORazepam 2 MG/1 ML VIAL ONE ×2 (16:38→19:54)
[2023-08-16] MEDS ORDERED: POTASSIUM CHLORIDE 10 MEQ TABCR PO ONE (16:38)
[2023-08-16] MEDS ORDERED: Ativan IV Alcohol Withdrawal--Active Protocol IV PRN (19:48)
[2023-08-16] MEDS ORDERED: ONDANSETRON INJ 2 MG/ML 2 ML VIAL IV PRN (19:48)
[2023-08-16] MEDS ORDERED: POLYETHYLENE (MIRALAX) 17 GM PACK PO PRN (19:48)
[2023-08-16] MEDS ORDERED: LORazepam 2 MG/1 ML VIAL IV PRN (19:48)
[2023-08-16] MEDS ORDERED: GABAPENTIN 1200MG ALCOHOL WITHDRAWAL LOAD PO STA (19:48)
[2023-08-16] MEDS ORDERED: GABAPENTIN 600 MG TAB PO ONE (20:00)
[2023-08-16] MEDS ORDERED: POTASSIUM CHLORIDE CRTAB 20 MEQ TABCR PO ONE (21:00)
[2023-08-17] MEDS: LORazepam 2 MG/1 ML VIAL IV PRN ×5 (02:02→21:16)
[2023-08-17] MEDS ORDERED: MAGNESIUM SULFATE / D5W 1 GM/100 ML BAG IV ONE (02:40)
[2023-08-17] MEDS ORDERED: ALBUT/IPRATROP 3MG/0.5MG NEB 3 ML VIAL NEB STA (02:40)
[2023-08-17 03:37] LABS: iSTAT Allen Test Pass; iSTAT Art Bld Gas pCO2 Correct 46 mmHg (35-46); iSTAT Art Bld Gas pH Corrected 7.407 (7.35-7.45); iSTAT Arterial Blood Gas HCO3 29 meg/L (19-24); iSTAT Arterial Blood Gas pCO2 46 mmHg (35-46); iSTAT Arterial Blood Gas pH 7.41 (7.35-7.45); iSTAT Arterial Blood Gas pO2 84 mmHg (80-95); iSTAT Arterial Blood Gas pO2 C 85; iSTAT Carbon Dioxide 30 mmol/L (24-31); iSTAT Hematocrit 51 % (42-52); iSTAT Hemoglobin 17.3 g/dl (14.0-18.0); iSTAT Potassium 3.9 mmol/L (3.3-5.0); iSTAT Site R Radial; iSTAT Sodium 140 mmol/L (135-144)
[2023-08-17 03:37] LABS: iSTAT Allen Test Pass; iSTAT Art Bld Gas pCO2 Correct 44 mmHg (35-46); iSTAT Art Bld Gas pH Corrected 7.412 (7.35-7.45); iSTAT Arterial Blood Gas HCO3 28 meg/L (19-24); iSTAT Arterial Blood Gas pCO2 44 mmHg (35-46); iSTAT Arterial Blood Gas pH 7.42 (7.35-7.45); iSTAT Arterial Blood Gas pO2 50 mmHg (80-95); iSTAT Arterial Blood Gas pO2 C 51; iSTAT Carbon Dioxide 29 mmol/L (24-31); iSTAT Hematocrit 51 % (42-52); iSTAT Hemoglobin 17.3 g/dl (14.0-18.0); iSTAT Potassium 3.8 mmol/L (3.3-5.0); iSTAT Site L Radial; iSTAT Sodium 140 mmol/L (135-144)
[2023-08-17] MEDS: GABAPENTIN 600 MG TAB PO SCH ×3 (06:28→21:17)
--- NOTE | 2023-08-17 06:32 | Electrocardiogram Report ---
Test Reason : Blood Pressure : / mmHG Vent. Rate : 062 BPM Atrial Rate : 062 BPM P-R Int : 144 ms QRS Dur : 098 ms QT Int : 428 ms P-R-T Axes : 042 095 068 degrees QTc Int : 434 ms Normal sinus rhythm Rightward axis Incomplete right bundle branch block Anterior infarct (cited on or before 16-AUG-2023) Abnormal ECG When compared with ECG of 15-JUL-2023 13:26, Incomplete right bundle branch block is now Present Confirmed by Cuong Turner ([id number]) on 08/17/2023 6:31:47 AM Referred By: Confirmed By:Cuong Turner
[2023-08-17] MEDS: ACETAMINOPHEN 325 MG TAB PO PRN (06:35)
[2023-08-17] MEDS: NICOTINE 21 MG/24 HR TDSY TD SCH (07:43)
[2023-08-17] MEDS: THIAMINE HCL 100 MG TAB PO SCH (07:57)
[2023-08-17] MEDS: MULTIVITAMIN TAB PO SCH (07:57)
[2023-08-17] MEDS: FOLIC ACID 1 MG TAB PO SCH (07:57)
[2023-08-17 08:12] LABS: Albumin Globulin Ratio 1.2 (0.9-2); Albumin Level 3.4 gm/dl (3.4-5.0); Calcium 8.6 mg/dl (8.6-10.3); Creatinine Clr Calc Pharmacy 124.6 ml/min; Est GFR (African American) 121.8 ml/min; Est GFR (Non-African American) 105.1 ml/min; Globulin 2.9 gm/dl (2.5-4.0); Magnesium 1.6 mg/dl (1.7-2.4); Phosphorus 2.5 mg/dl (2.5-4.9); Potassium 3.9 mmol/L (3.5-5.1); Total Protein 6.3 gm/dl (6.0-8.3)
[2023-08-17 08:19] LABS: Hematocrit (blood only) 48.3 % (42.0-52.0); Hemoglobin 17.3 g/dl (14.0-18.0); Mean Corpuscular Hemoglobin 33.6 pg (25.0-34.0); Mean Corpuscular Hgb Conc 35.8 g/dL (32.0-36.0); Mean Corpuscular Volume 93.8 fL (80.0-100.0); Platelet Count 102 K/uL (130-400); RDW Coefficient of Variation 13.9 % (11.5-14.5); RDW Standard Deviation 47.5 fL (36.4-46.3); Red Blood Count 5.15 M/uL (4.70-6.10); White Blood Count 5.66 K/ul (4.8-10.8)
--- NOTE | 2023-08-17 08:27 | XRay Report ---
XR chest 1V portable HISTORY: 52 years-old Male low o2 acute hypoxia COMPARISON: 06/21/2022 TECHNIQUE: AP view of the chest FINDINGS: Cardiac mediastinal and hilar silhouettes are within normal limits. No pneumothorax, pleural effusion , airspace consolidation or pulmonary edema. Bones appear grossly intact. Mild mid thoracic levoscoli osis. IMPRESSION: No acute process. ACT 112: Negative or not required by law. The above report was generated using voice recognition software. It may contain grammatical, syntax o r spelling errors. Electronically signed by: Zi Acevedo M.D. 08/17/2023 8:26 AM
--- NOTE | 2023-08-17 13:28 | Hospitalist Progress Note ---
Date of Service August 17, 2023 Assessment & Plan (1) Alcohol withdrawal: Plan Patient is 52-year-old male with PMH ETOH abuse, tobacco use presented to ER 08/16 for alcohol withdrawal and wishes to quit drinking. Alcohol withdrawal: Alcohol dependence: Drinks 1L vodka daily. Last drink reported at 09:00 on 08/16 In ER vitals stable. EtOH level: 245 Continue with folic acid, thiamine, multivitamin. Continue with alcohol withdrawal protocol with gabapentin and as needed Ativan Monitor replete electrolytes as appropriate. Continue telemetry monitoring. Case management for assistance with alcohol rehab Acute hypokalemia: Admitting potassium 3.4, monitor and replete. Elevated hemoglobin: Admitting H/H: . Appears chronically elevated. Could be dehydration prior to arrival vs chronic smoking vs both. JAK2 test pending. Follow H&H. Elevated liver function tests: Admitting T. bili: 0.6, AST: 70 (109 on 07/22), ALT: 42 (62 on 07/22), alk phos: 110 (105 on 07/22) 07/16/2023: RUQ ultrasound: Cholelithiasis without acute cholecystitis. Borderline dilation common bile duct. Hepatic steatosis LFT trending down, LFT every 2 days. Tobacco use: Nicotine patch, Smoking cessation encouraged DVT Prophylaxis: SCDs Full Code Follows with Dr Louie for routine care Admission and Anticipated Discharge Date Admission Date: August 16, 2023 Subjective Patient was seen and examined at bedside. Patient was lying in bed, on room air, resting comfortably, not in any acute distress. Patient reports eating okay and moving bowels okay, denies any pain or burning with passing urine. Patient reports being anxious, also noted to have fine tremors bilateral hands. Plan to closely monitor for alcohol withdrawal, patient under AWSS protocol Physical Exam Physical Exam: GENERAL: Alert and oriented x3. NAD, on RA. HEENT: No pallor, no icterus. Pupils equal, round and reactive to light. Oral mucosa moist. NECK: No JVD, no neck masses. HEART: S1 and S2 heard. Regular rate and rhythm. No murmur, no gallop. RESPIRATORY SYSTEM: Normal AP diameter. No accessory muscle use. No wheezing, no crackles. ABDOMEN: Soft, bowel sounds present, nontender, no distention. CENTRAL NERVOUS SYSTEM: No facial droop. Speech is clear. Obeys simple commands. Moves extremities. EXTREMITIES: No edema, no erythema seen. fine tremors b/l hands Results & Data Results & Data Vital Signs (Past 12 Hours) Vital Signs Temp Pulse Pulse Resp BP BP Pulse Ox 08/17/23 11:10 37.0 C 78 18 132/81 92 08/17/23 07:00 76 08/17/23 06:21 37.1 C 72 16 115/71 92 08/17/23 02:22 76 08/17/23 02:25 08/17/23 03:15 87 20 94 08/17/23 01:50 74 9 L 08/17/23 01:46 81 28 H 08/17/23 01:40 158/85 H 08/17/23 01:31 86 L 08/17/23 01:30 88 L 08/17/23 01:20 91 08/17/23 01:46 37.2 C 82 22 158/85 H 90 O2 Del Method O2 Flow Rate 08/17/23 11:10 Room Air 08/17/23 07:00 08/17/23 06:21 Room Air 08/17/23 02:22 08/17/23 02:25 Room Air 08/17/23 03:15 Nasal Cannula 4 08/17/23 01:50 08/17/23 01:46 08/17/23 01:40 08/17/23 01:31 08/17/23 01:30 08/17/23 01:20 08/17/23 01:46 Room Air
[2023-08-17] MEDS: MAGNESIUM SULFATE / D5W 1 GM/100 ML BAG IV SCH ×2 (14:19→15:50)
[2023-08-17 14:36] LABS: Appearance Urine Clear (Clear); Bilirubin Urine Negative (Negative); Blood Urine Negative (Negative); Color Urine Yellow; Glucose Urine UA Negative (Negative); Ketones Urine Negative (Negative); Leukocyte Esterase Urine Negative (Negative); Nitrite Urine Negative (Negative); Protein Urine Negative (Negative); Specific Gravity Urine 1.016 (1.000-1.030); Urobilinogen Urine Negative (Negative)
[2023-08-17 15:27] LABS: Amphetamines+Metham, Urine Neg (Neg); Barbiturates, Urine Neg (Neg); Benzodiazepine, Urine Neg (Neg); Cocaine, Urine Neg (Neg); MDMA (Ecstacy), Urine Neg (Neg); Methadone, Urine Neg (Neg); Opiate, Urine Neg (Neg); Phencyclidine, Urine Neg (Neg)
[2023-08-18] MEDS: GABAPENTIN 600 MG TAB PO SCH ×2 (05:46→14:11)
[2023-08-18 06:46] LABS: Hematocrit (blood only) 51.7 % (42.0-52.0); Hemoglobin 18.5 g/dl (14.0-18.0); Mean Corpuscular Hemoglobin 33.7 pg (25.0-34.0); Mean Corpuscular Hgb Conc 35.8 g/dL (32.0-36.0); Mean Corpuscular Volume 94.2 fL (80.0-100.0); Mean Platelet Volume 10.5 fL (9.4-12.4); Platelet Count 90 K/uL (130-400); RDW Coefficient of Variation 14.1 % (11.5-14.5); RDW Standard Deviation 48.3 fL (36.4-46.3); Red Blood Count 5.49 M/uL (4.70-6.10); White Blood Count 6.55 K/ul (4.8-10.8)
[2023-08-18 07:12] LABS: Blood Urea Nitrogen 10 mg/dl (6-23); Calcium 8.8 mg/dl (8.6-10.3); Carbon Dioxide 27 mmol/L (21-32); Chloride 105 mmol/L (98-107); Creatinine Clr Calc Pharmacy 115.6 ml/min; Est GFR (African American) 118.1 ml/min; Est GFR (Non-African American) 101.9 ml/min; Glucose 90 mg/dl (70-99(Fasting)); Phosphorus 3.4 mg/dl (2.5-4.9)
[2023-08-18 08:31] LABS: Magnesium 1.8 mg/dl (1.7-2.4); Potassium 4.1 mmol/L (3.5-5.1)
[2023-08-18] MEDS: NICOTINE 21 MG/24 HR TDSY TD SCH (08:52)
[2023-08-18] MEDS: FOLIC ACID 1 MG TAB PO SCH (08:55)
[2023-08-18] MEDS: MULTIVITAMIN TAB PO SCH (08:56)
[2023-08-18] MEDS: THIAMINE HCL 100 MG TAB PO SCH (08:56)
[2023-08-18] MEDS ORDERED: hydrALAZINE HCL 20 MG/ML VIAL IV PRN (12:25)
--- NOTE | 2023-08-18 15:17 | Hospitalist Progress Note ---
Date of Service August 18, 2023 Assessment & Plan (1) Alcohol withdrawal: Plan Patient is 52-year-old male with PMH ETOH abuse, tobacco use presented to ER 08/16 for alcohol withdrawal and wishes to quit drinking. Alcohol withdrawal: Alcohol dependence: Drinks 1L vodka daily. Last drink reported at 09:00 on 08/16 In ER vitals stable. EtOH level: 245 Continue with folic acid, thiamine, multivitamin. Continue with alcohol withdrawal protocol with gabapentin and as needed Ativan Monitor replete electrolytes as appropriate. Continue telemetry monitoring. Case management for assistance with alcohol rehab Acute hypokalemia: Admitting potassium 3.4, monitor and replete. Elevated hemoglobin: Admitting H/H: . Appears chronically elevated. Could be dehydration prior to arrival vs chronic smoking vs both. JAK2 test pending. Follow H&H. Elevated liver function tests: Admitting T. bili: 0.6, AST: 70 (109 on 07/22), ALT: 42 (62 on 07/22), alk phos: 110 (105 on 07/22) 07/16/2023: RUQ ultrasound: Cholelithiasis without acute cholecystitis. Borderline dilation common bile duct. Hepatic steatosis LFT trending down, LFT every 2 days. Tobacco use: Nicotine patch, Smoking cessation encouraged DVT Prophylaxis: SCDs Full Code Follows with Dr Louie for routine care Admission and Anticipated Discharge Date Admission Date: August 16, 2023 Subjective Patient was seen and examined at bedside. Patient was lying in bed, on room air, resting comfortably, not in any acute distress. Patient reports eating okay and moving bowels okay, denies any pain or burning with passing urine. Patient reports improving anxiety. Plan to closely monitor for alcohol withdrawal, patient under AWSS protocol. Physical Exam Physical Exam: GENERAL: Alert and oriented x3. NAD, on RA. HEENT: No pallor, no icterus. Pupils equal, round and reactive to light. Oral mucosa moist. NECK: No JVD, no neck masses. HEART: S1 and S2 heard. Regular rate and rhythm. No murmur, no gallop. RESPIRATORY SYSTEM: Normal AP diameter. No accessory muscle use. No wheezing, no crackles. ABDOMEN: Soft, bowel sounds present, nontender, no distention. CENTRAL NERVOUS SYSTEM: No facial droop. Speech is clear. Obeys simple commands. Moves extremities. EXTREMITIES: No edema, no erythema seen. fine tremors b/l hands Results & Data Results & Data Vital Signs (Past 12 Hours) Vital Signs Temp Pulse Pulse Resp BP Pulse Ox O2 Del Method 08/18/23 12:00 36.8 C 69 18 172/115 H 97 Room Air 08/18/23 11:40 64 08/18/23 07:52 36.8 C 77 20 125/93 96 Room Air 08/18/23 03:33 36.5 C 60 22 152/99 H 92 Room Air
[2023-08-19] MEDS ORDERED: GABAPENTIN 600 MG TAB PO SCH
[2023-08-19] MEDS: ACETAMINOPHEN 325 MG TAB PO PRN (05:00)
[2023-08-19 06:57] LABS: Hematocrit (blood only) 54.4 % (42.0-52.0); Hemoglobin 19.5 g/dl (14.0-18.0); Mean Corpuscular Hemoglobin 34.2 pg (25.0-34.0); Mean Corpuscular Hgb Conc 35.8 g/dL (32.0-36.0); Mean Corpuscular Volume 95.3 fL (80.0-100.0); Mean Platelet Volume 11.3 fL (9.4-12.4); Platelet Count 74 K/uL (130-400); RDW Coefficient of Variation 13.9 % (11.5-14.5); RDW Standard Deviation 47.7 fL (36.4-46.3); Red Blood Count 5.71 M/uL (4.70-6.10); White Blood Count 7.39 K/ul (4.8-10.8)
[2023-08-19 07:40] LABS: Albumin Globulin Ratio 1.2 (0.9-2); Albumin Level 4.1 gm/dl (3.4-5.0); BUN Creatinine Ratio 17.9 (10-20); Bilirubin,Total 1.1 mg/dl (0.2-1.0); Calcium 9.6 mg/dl (8.6-10.3); Est GFR (African American) 121.1 ml/min; Est GFR (Non-African American) 104.5 ml/min; Globulin 3.4 gm/dl (2.5-4.0); Potassium 3.7 mmol/L (3.5-5.1); Total Protein 7.5 gm/dl (6.0-8.3)
[2023-08-19] MEDS: MULTIVITAMIN TAB PO SCH (09:04)
[2023-08-19] MEDS: FOLIC ACID 1 MG TAB PO SCH (09:05)
[2023-08-19] MEDS: THIAMINE HCL 100 MG TAB PO SCH (09:06)
[2023-08-19] MEDS: NICOTINE 21 MG/24 HR TDSY TD SCH (09:07)
--- NOTE | 2023-08-19 11:39 | Discharge Summary ---
Date of Service August 19, 2023 Admission HPI Per Admitting Provider Patient is 52-year-old male with PMH ETOH abuse, tobacco use presented to ER for alcohol withdrawal. History obtained from patient and inpatient and outpatient chart review. Patient states that he drinks 1L vodka daily. Last drink reported at 09:00 today. He voices wish to quit drinking. Patient states all he does is drink all day and doesn't consume other foods or liquids. States feels shaky in ER. He reports history tremors and anxiety with alcohol withdrawal in past. Denies history seizure, hallucinations, or DT's in past. Per chart review patient was hospitalized 07/15/23-07/17/23 for alcohol withdrawal and left AMA secondary to personal reasons. Denies fever/chills, diaphoresis, N/V/D/C, RODRIGUEZ, dizziness, syncope, vision changes, neck pain, CP, SOB, orthopnea, palpitations, cough, sore throat, rhinorrhea, abdominal pain, paresthesias, extremity weakness, extremity edema, rashes, urinary symptoms. Admission Exam Per Admitting Provider General: no acute distress, WDWN Head: normocephalic, atraumatic Eyes: PERRL, conjunctiva non-injected, anicteric ENT: normal inspection external ears, nose, mucous membranes moist, +ETOH odor on breath Neck: supple, trachea midline Lungs: clear, no respiratory distress, no wheezing/rhonchi/rales CV: RRR, no murmur, no pretibial edema Abd: normal BS, soft, non-tender Ext: no cyanosis, no calf tenderness Neuro: A&O x 3, +mildly tremulous otherwise no focal deficits noted, normal affect Skin: warm, dry, bilateral hands and face red coloration Principal Diagnosis Alcohol withdrawal Discharge Exam GENERAL: Alert and oriented x3. NAD, on RA. HEENT: No pallor, no icterus. Pupils equal, round and reactive to light. Oral mucosa moist. NECK: No JVD, no neck masses. HEART: S1 and S2 heard. Regular rate and rhythm. No murmur, no gallop. RESPIRATORY SYSTEM: Normal AP diameter. No accessory muscle use. No wheezing, no crackles. ABDOMEN: Soft, bowel sounds present, nontender, no distention. CENTRAL NERVOUS SYSTEM: No facial droop. Speech is clear. Obeys simple commands. Moves extremities. EXTREMITIES: No edema, no erythema seen. fine tremors b/l hands Discharge Data Allergies Allergy/AdvReac Type Severity Reaction Status Date / Time latex Allergy Intermediate BLISTERS Verified 08/16/23 15:21 bee venom protein (honey bee) Allergy HIVES Verified 08/16/23 15:21 honey Allergy HIVES Verified 08/16/23 15:21 Consultations 08/16/23 15:46 ED Decision to Admit Stat Hospital Course (1) Alcohol withdrawal: Plan Patient is 52-year-old male with PMH ETOH abuse, tobacco use presented to ER 08/16 for alcohol withdrawal and wishes to quit drinking. He was being managed for the following: Alcohol withdrawal: Alcohol dependence: Drinks 1L vodka daily. Last drink reported at 09:00 on 08/16 In ER vitals stable. EtOH level: 245 Continue with folic acid, thiamine, multivitamin. Continue with alcohol withdrawal protocol with gabapentin and as needed Ativan Monitor replete electrolytes as appropriate. Continue telemetry monitoring. Case management for assistance with alcohol rehab Acute hypokalemia: monitor and replete. Elevated hemoglobin: Admitting H/H: . Appears chronically elevated. Could be dehydration prior to arrival vs chronic smoking vs both. JAK2 test pending. Follow H&H. Elevated liver function tests: Secondary to alcohol use history. Admitting T. bili: 0.6, AST: 70 (109 on 07/22), ALT: 42 (62 on 07/22), alk phos: 110 (105 on 07/22) 07/16/2023: RUQ ultrasound: Cholelithiasis without acute cholecystitis. Borderline dilation common bile duct. Hepatic steatosis LFT trending down, LFT every 2 days. Tobacco use: Nicotine patch, Smoking cessation encouraged DVT Prophylaxis: SCDs Full Code Follows with Dr Louie for routine care Patient was alert and oriented x3. Detailed conversation held regarding alcohol cessation and its long-term impact on neurological and musculoskeletal systems were discussed. Patient explained that he is going through detoxification and need to stay further for monitoring in the hospital. He runs the risks of having arrhythmia/seizure/severe withdrawal/delirium including if he leaves the hospital. Patient explained that and he verbalized understanding. He still wanted to leave AGAINST MEDICAL ADVICE. Home Health Attestation I certify that this patient is under my care and that I, or a physicians assistant family teacher working with me, had a face to-face encounter that meets the home health [id number] encounter requirements with this patient. The encounter with the patient was in whole, or in part, for the following medical condition, which is the primary reason for home health care (list medical condition): I certify that, based on my findings, the following services are medically necessary home health services: My clinical findings support the need for the above services because: Further, I certify that my clinical findings support that this patient is homebound (i.e. absences from home require considerable and taxing effort and are for medical reasons or jewish services or infrequently or of short duration when for other reasons) because: Certification for Home Health Services: Based on the above findings, I certify that this patient is confined to the home and needs intermittent fdc care, physical therapy and/or speech therapy or continues to need occupational therapy. The patient is under my care, and I have initiated the establishment of the plan of care. This patient will be followed by a physician who will periodically review the plan of care. Total Time Total Time Spent Total Time Spent (In Minutes): 45 Discharge Plan Discharge Items Patient Disposition: Against Medical Advice Reason For Visit: ETOH WITHDRAWAL Activity: As commented below Activity Comment: left ama Non-emergency contact: Primary Care Provider Follow-up/Referrals: Roby Louie MD [Primary Care Provider] - Pending Studies at Discharge: Yes Stand-Alone Forms: My [facility], Work/School Release, Smoking Cessation Medications and DC Order Prescriptions: No Action gabapentin 400 mg capsule 400 mg PO TID acetaminophen [Tylenol Extra Strength] 500 mg Tablet 1,000 mg PO Q6H PRN (Reason: Pain) Discharge Orders: Left Against Medical Advice (Routine); Ordered 08/19/23 Ordered By: Carol Riddle Admission Data Admit Date/Time: 08/16/23 16:13 Attending Provider: Carol Riddle Admit Provider: Blanca Lyle Primary Care Provider: Roby Louie Other Providers: Blanca Lyle
[2023-08-20 09:23] LABS: Marijuana Quant, GCMS Urine 896 ng/mL (<5)
[2023-08-20] MEDS ORDERED: GABAPENTIN 600 MG TAB PO SCH (12:00)
== END 2023-08-19 11:40 | disposition left against medical advice (07) | DRG 894 ==
LOC: ED 12:42 → SUATTDRO 16:13 → EDINP 16:13 → 2E 19:49

== ENCOUNTER 2024-08-06 21:21 | Inpatient (IN) ==
--- NOTE | 2024-08-06 21:47 | Emergency Department Note ---
Impression & Plan Alcohol withdrawal ADMIT ED Provider Note HPI: History obtained from patient. The patient is a 54-year-old gentleman with history of alcohol dependence, presents the emergency department with a chief complaint of concern for alcohol withdrawal. Patient states that he feels like he needs to go to rehab, he states his last drink today was at noon. He states that he felt like it was time to get help and therefore he had his fiance bring him to the hospital as he was beginning to experience a withdrawal type symptoms. On arrival here to the ED the patient was noted to be mildly hypoxic at 89% on room air and was placed on nasal cannula oxygen with good improvement. Patient also states he has had some substernal chest "pressure" that has been ongoing throughout the day today. Patient is requesting placement to an inpatient rehabilitation facility for alcohol detox. ROS: - Per HPI Differential Diagnosis: Alcohol withdrawal, alcohol intoxication, acute coronary syndrome, pneumonia, CHF exacerbation, pulmonary edema, pulmonary embolism, amongst other potential pathologies. *Outpatient medications and allergy history reviewed. PE: General: Alert, no acute distress, smells of alcohol HEENT: Normocephalic, trachea midline Eyes: Extraocular eye movement is intact, no scleral erythema Pulmonary: Clear to auscultation bilaterally, no wheezing Cardio: Regular rate and rhythm GI: Abdomen is soft to palpation : No suprapubic tenderness MSK: No evidence of trauma or malformation of the extremities, no edema Skin: No evidence of rash Neuro: Moderate tremulousness noted, otherwise alert, no focal deficits Psychiatric: Cooperative INDEPENDENT INTERPRETATIONS: gambling monitor: (As interpreted by myself): - An order was placed for continuous cardiac monitoring - Patient was noted to be in sinus rhythm with a rate of 85 EKG: (As interpreted by myself): Rate: 80 Rhythm: Normal sinus rhythm Intervals: Within normal limits ST changes: No ST elevation Time: 2133 Chest x-ray: (As interpreted by myself): No acute disease Interventions provided in ED: -IV fluid bolus, IV folic acid, IV thiamine, IV Ativan Medical Decision Making: IV was established and lab work obtained, patient was placed on site monitor. Lab work shows no leukocytosis, hemoglobin is normal, platelet count is 80 which appears to be near the patient's baseline, CMP does not show any evidence of any critical findings. There is a chronic transaminitis likely associated with the patient's alcohol use. Troponin is negative, EKG does not show any acute ischemic changes, chest x-ray per my interpretation does not show any evidence of acute disease. Alcohol level is elevated at 249.8. Patient does appear tremulous on exam, he states he does have a history of withdrawal, he is requesting admission for detox. Case was discussed with the on-call hospitalist, Dr. Johnson, and the patient was placed for admission in stable condition. Consultants/Discussions held with other healthcare providers: -Hospitalist, Dr. Johnson Disposition discussion held by myself with: -Patient Diagnosis: 1. Alcohol withdrawal syndrome, acute 2. Nonspecific chest pain, acute Disposition: Admission Edin Carrasquillo DO Emergency Medicine Past Med/Surg History Problem List (Updated 08/06/24 @ 23:35 by Edin Carrasquillo DO) Tobacco use (Acute) Elevated liver function tests Elevated hemoglobin Alcohol withdrawal (Acute) Acute hypokalemia (Acute) Alcohol dependence (Acute) Alcohol withdrawal (Acute) Medical History Transaminitis History of heroin abuse Alcohol withdrawal Alcohol dependence Surgical History No pertinent past surgical history Family History Other Family history non-contributory Social History Smoking Status: Current every day smoker Tobacco Type: Cigarettes Cigarettes Per Day: 20; Second Hand Exposure: Yes; Do You Dip or Chew Tobacco: No; Hx Alcohol Use: Yes Alcohol type: hard liquor Hx Substance Use: Yes Last Used Substance: Days (ago) Last Used Substance Other:: 08/24/22 Preferred Language: Yoruba Communication Ability: Effective Technical Internship Required: No Beliefs That Will Affect Care: None marital status: Life Partner Current Living Situation: Significant Other Feels Safe at Home: Yes Assistive Devices: None Allergies Allergies Allergy/AdvReac Type Severity Reaction Status Date / Time No Known Allergies Allergy Verified 08/06/24 21:31 Home Meds Home Medications Medication Instructions Recorded Confirmed gabapentin 400 mg capsule 400 mg PO HS 06/02/24 08/06/24 ibuprofen 200 mg tablet 400 mg PO Q6H PRN Pain 06/02/24 08/06/24 Results & Data (ED) Vital Signs Vital Signs - 24 hr 08/06/24 21:25 08/06/24 21:35 08/06/24 21:35 Temperature 36.5 C Temperature Source Oral Pulse Rate 97 H Pulse Rate [Right Finger] 89 Pulse Rhythm Regular Pulse Rhythm [Right Finger] Regular Pulse Strength Normal Pulse Strength [Right Finger] Normal Respiratory Rate 22 16 Respiratory Effort / Characteristics Non-Labored Spontaneous Non-Labored Respiratory Depth Normal Normal Respiratory Pattern Regular Regular Blood Pressure 114/75 Blood Pressure [Right Arm] 107/75 Blood Pressure Mean 88 Blood Pressure Mean [Right Arm] 85 Blood Pressure Position [Right Arm] Lying Pulse Oximetry 89 L 89 L 95 Oxygen Delivery Method Room Air Room Air Nasal Cannula Room Air Oxygen Flow Rate 4 Sepsis Recent Fever Within 48 Hours No Sepsis New/Unexplained Change in Mental Status No Sepsis Action Taken by Nursing No Action Required Pulse Oximetry Post Tiitration 93 08/06/24 21:38 08/06/24 21:40 Temperature Temperature Source Pulse Rate 92 H 82 Pulse Rate [Right Finger] Pulse Rhythm Regular Pulse Rhythm [Right Finger] Pulse Strength Pulse Strength [Right Finger] Respiratory Rate 16 Respiratory Effort / Characteristics Respiratory Depth Respiratory Pattern Blood Pressure Blood Pressure [Right Arm] Blood Pressure Mean Blood Pressure Mean [Right Arm] Blood Pressure Position [Right Arm] Pulse Oximetry 93 Oxygen Delivery Method Room Air Oxygen Flow Rate Sepsis Recent Fever Within 48 Hours Sepsis New/Unexplained Change in Mental Status Sepsis Action Taken by Nursing Pulse Oximetry Post Tiitration Laboratory Data 08/06/24 21:44 08/06/24 21:44 Lab Results 08/06/24 08/06/24 Range/Units 21:44 21:45 WBC 5.80 (4.8-10.8) K/ul RBC 4.55 L (4.70-6.10) M/uL Hgb 15.9 (14.0-18.0) g/dl Hct 45.6 (42.0-52.0) % MCV 100.2 H (80.0-100.0) fL MCH 34.9 H (25.0-34.0) pg MCHC 34.9 (32.0-36.0) g/dL RDW Std Deviation 61.2 H (36.4-46.3) fL RDW Coeff of Kristopher 16.4 H (11.5-14.5) % Plt Count 80 L (130-400) K/uL MPV 11.0 (9.4-12.4) fL Immature Gran % (Auto) 0.5 % Neut % (Auto) 80.6 % Lymph % (Auto) 14.7 % [place] % (Auto) 3.8 % Eos % (Auto) 0.2 % Baso % (Auto) 0.2 % Neut # (Auto) 4.68 (1.40-6.50) K/uL Lymph # (Auto) 0.85 L (1.20-3.40) K/uL [place] # (Auto) 0.22 (0.11-0.59) K/uL Eos # (Auto) 0.01 (0.00-0.50) K/uL Baso # (Auto) 0.01 (0.00-0.20) K/uL Immature Gran # (Auto) 0.03 (0.01-0.20) K/uL PT 10.1 (9.0-12.0) Seconds INR 0.9 (0.9-1.1) APTT 29 (21-31) Seconds PTT Ratio 1.1 Sodium 138 (136-145) mmol/L Potassium 4.0 (3.5-5.1) mmol/L Chloride 99 (98-107) mmol/L Carbon Dioxide 30 (21-32) mmol/L Anion Gap 9 (3-11) BUN 7 (6-23) mg/dl Creatinine 0.67 (0.6-1.4) mg/dl Est Cr Clr Drug Dosing 130.2 ml/min eGFR 112.34 BUN/Creatinine Ratio 10.4 (10-20) Glucose 216 H (70-99(Fasting)) mg/dl POC Glucose 217 H (70-99) mg/dl Estimat Average Glucose 126 mg/dl Hemoglobin A1c 6.0 H (4.5-5.6) % Calcium 8.4 L (8.6-10.3) mg/dl Magnesium 1.7 (1.7-2.4) mg/dl Total Bilirubin 0.5 (0.2-1.0) mg/dl AST 142 H (13-39) U/L ALT 77 H (7-52) U/L Alkaline Phosphatase 131 H (34-104) U/L Troponin I High Sens 8.0 (0-20) pg/ml Total Protein 7.0 (6.0-8.3) gm/dl Albumin 3.7 (3.4-5.0) gm/dl Globulin 3.3 (2.5-4.0) gm/dl Albumin/Globulin Ratio 1.1 (0.9-2) Ethyl Alcohol mg/dL 249.8 H (<10.0) mg/dl Administered Medications Doxycycline Hyclate 100 mg/ (Dextrose) 100 mls @ 50 mls/hr IV NOW STA Stop: 08/07/24 00:59 Last Admin: 08/06/24 23:28 Dose: 50 mls/hr Documented By: CARMELO Discontinued Medications Albuterol (Albut/Ipratrop 3mg/0.5mg Neb 3 Ml Vial) 3 ml NEB NOW STA; Protocol Stop: 08/06/24 23:01 Last Admin: 08/06/24 23:10 Dose: 3 ml Documented By: CARMELO Sodium Chloride (Nss) 1,000 mls @ 999 mls/hr IV .Q1H1M ONE Stop: 08/06/24 22:47 Last Infusion: 08/06/24 22:53 Dose: Infused Documented By: Admin: 08/06/24 22:14 Dose: 999 mls/hr Documented By: CARMELO Folic Acid 1 mg/ Syringe 10 mls @ 5 mls/min IV NOW STA Stop: 08/06/24 21:48 Last Admin: 08/06/24 23:18 Dose: 5 mls/min Documented By: CARMELO Thiamine HCl 200 mg/ Sodium (Chloride) 52 mls @ 210 mls/hr IV NOW STA Stop: 08/06/24 22:01 Last Admin: 08/06/24 23:19 Dose: 210 mls/hr Documented By: CARMELO Lorazepam (Lorazepam 2 Mg/1 Ml Vial) 1 mg IV NOW STA Stop: 08/06/24 22:26 Last Admin: 08/06/24 22:50 Dose: 1 mg Documented By: OSMAN Discharge Plan Visit Data Chief Complaint: Detox Request Stated Complaint: DETOX, SOB, CHEST PAIN ED Provider: Edin Carrasquillo Discharge Problem: Alcohol withdrawal Forms Stand Alone Forms: [facility], Suicide Prevention Resources Prescriptions Prescriptions: No Action gabapentin 400 mg Capsule 400 mg PO HS ibuprofen 200 mg Tablet 400 mg PO Q6H PRN (Reason: Pain) Referrals Referrals: Roby Louie MD [Primary Care Provider] -
[2024-08-06 22:03] LABS: Basophils # (auto) 0.01 K/uL (0.00-0.20); Basophils % (auto) 0.2 %; Eosinophils # (auto) 0.01 K/uL (0.00-0.50); Eosinophils % (auto) 0.2 %; Hematocrit (blood only) 45.6 % (42.0-52.0); Hemoglobin 15.9 g/dl (14.0-18.0); Immature Granulocytes # (auto) 0.03 K/uL (0.01-0.20); Immature Granulocytes % (auto) 0.5 %; Lymphocytes # (auto) 0.85 K/uL (1.20-3.40); Lymphocytes % (auto) 14.7 %; Mean Corpuscular Hemoglobin 34.9 pg (25.0-34.0); Mean Corpuscular Hgb Conc 34.9 g/dL (32.0-36.0); Mean Corpuscular Volume 100.2 fL (80.0-100.0); Monocytes # (auto) 0.22 K/uL (0.11-0.59); Monocytes % (auto) 3.8 %; Neutrophils # (auto) 4.68 K/uL (1.40-6.50); Neutrophils % (auto) 80.6 %; Platelet Count 80 K/uL (130-400); RDW Coefficient of Variation 16.4 % (11.5-14.5); RDW Standard Deviation 61.2 fL (36.4-46.3); Red Blood Count 4.55 M/uL (4.70-6.10)
[2024-08-06 22:14] LABS: Albumin Globulin Ratio 1.1 (0.9-2); Albumin Level 3.7 gm/dl (3.4-5.0); BUN Creatinine Ratio 10.4 (10-20); Bilirubin,Total 0.5 mg/dl (0.2-1.0); Calcium 8.4 mg/dl (8.6-10.3); Creatinine Clr Calc Pharmacy 130.2 ml/min; Globulin 3.3 gm/dl (2.5-4.0)
[2024-08-06] MEDS: SODIUM CHLORIDE 0.9% 1,000 ML IV ONE (22:14)
--- NOTE | 2024-08-06 22:35 | History & Physical Report ---
Date of Service August 06, 2024 Assessment & Plan (1) Acute hypoxemic respiratory failure: Plan: Secondary to possible aspiration pneumonia given alcohol use history No sepsis for now Alcohol withdrawal Alcoholic hepatitis, likely good prognosis Maddrey's DF score given normal coags Chronic thrombocytopenia likely from chronic liver disease prediabetes, hemoglobin A1c of 5.06 October 2023 anxiety/mood disorder ongoing tobacco abuse Admit to medical telemetry Supplemental O2 Solu-Medrol and nebs stat given hypoxemia and wheezing on exam. Unasyn followed by Augmentin course DION S, DT precautions Update hemoglobin A1c DVT prophylaxis. SCDs re: thrombocytopenia Full code Total critical care time was 40 minutes. Text document was generated using [employer] voice recognition software. It may contain grammatical or spelling errors. Kindly contact undersigned for clarification of any documentation item in question. History of Present Illness Chief Complaint: Detox, chest pain, cough, SOB Primary Care Provider: Roby Louie MD History obtained from patient and records. Medical history significant for prediabetes, anxiety/mood disorder, chronic back pain, chronic thrombocytopenia, ongoing tobacco/alcohol abuse. Last confinement July 2023 for alcohol withdrawal. Patient left AGAINST MEDICAL ADVICE. Few days history of junky cough symptoms. Denies aspiration. Substernal heaviness with SOB. Vomiting symptoms without abdominal pain. Patient went to ER tonight because he wants to detox. Lowest O2 sats of 80s documented at the ER. Medical History as above Surgical History : None Family History : DM Personal/Social history : 1 pack daily, alcohol abuse, currently unemployed/occasional [employer] work Allergies Allergy/AdvReac Type Severity Reaction Status Date / Time No Known Allergies Allergy Verified 08/06/24 21:31 Home Medications Medication Instructions Recorded Confirmed Type gabapentin 400 mg capsule 400 mg PO HS 06/02/24 08/06/24 History ibuprofen 200 mg tablet 400 mg PO Q6H PRN Pain 06/02/24 08/06/24 History Past Med/Surg History Problem List (Updated 08/07/24 @ 00:55 by Axel Johnson MD) Acute hypoxemic respiratory failure Tobacco use (Acute) Elevated liver function tests Elevated hemoglobin Alcohol withdrawal (Acute) Acute hypokalemia (Acute) Alcohol dependence (Acute) Alcohol withdrawal (Acute) Medical History Transaminitis History of heroin abuse Alcohol withdrawal Alcohol dependence Surgical History No pertinent past surgical history Family History Other Family history non-contributory Social History Smoking Status: Current every day smoker Tobacco Type: Cigarettes Cigarettes Per Day: 1-1.5 PPD; Second Hand Exposure: Yes; Do You Dip or Chew Tobacco: No; Tobacco Cessation Education Requested by Patient: No Hx Alcohol Use: Yes Alcohol type: hard liquor Hx Substance Use: Yes Last Used Substance: Unknown Last Used Substance Other:: 08/24/22 Preferred Language: Macedonian Communication Ability: Effective Arcade Technician Required: No Beliefs That Will Affect Care: None marital status: Life Partner Current Living Situation: Family Other Information That Helps Us Care for You: No Feels Safe at Home: Yes Safety Concerns: Feels Safe At This Time Assistive Devices: Glasses Review of Systems Review of Systems: As per HPI, all other systems reviewed and negative Physical Exam Physical Exam: GENERAL: uncomfortable, tremulous, alcoholic fetor SKIN: Normal color, warm HEENT: Alopecia, pink palpebral conjunctivae, no ptosis, dry buccal mucosa, nasal cannula in place NECK : Supple, no tenderness CHEST : Decreased breath sounds, scattered expiratory wheezes more on the right, no tenderness HEART : RRR, no obvious murmurs ABDOMEN: Some distention, nontender EXTREMITIES : No LE swelling/tenderness, no other conspicuous deformities noted NEUROLOGIC : Coherent, no facial asymmetry, tremulous, no other gross focality Results & Data Results & Data Vital Signs (Past 12 Hours) Vital Signs Temp Pulse Pulse Resp BP BP Pulse Ox 08/06/24 21:40 82 16 93 08/06/24 21:38 92 H 08/06/24 21:35 89 16 107/75 95 08/06/24 21:35 89 L 08/06/24 21:25 36.5 C 97 H 22 114/75 89 L O2 Del Method O2 Flow Rate 08/06/24 21:40 Room Air 08/06/24 21:38 08/06/24 21:35 Room Air 08/06/24 21:35 Room Air, Nasal Cannula 4 08/06/24 21:25 Room Air Laboratory Results Laboratory Results WBC 5.80 K/ul (4.8-10.8) 08/06/24 21:44 RBC 4.55 M/uL (4.70-6.10) L 08/06/24 21:44 Hgb 15.9 g/dl (14.0-18.0) 08/06/24 21:44 Hct 45.6 % (42.0-52.0) 08/06/24 21:44 MCV 100.2 fL (80.0-100.0) H 08/06/24 21:44 MCH 34.9 pg (25.0-34.0) H 08/06/24 21:44 MCHC 34.9 g/dL (32.0-36.0) 08/06/24 21:44 RDW Std Deviation 61.2 fL (36.4-46.3) H 08/06/24 21:44 RDW Coeff of Kristopher 16.4 % (11.5-14.5) H 08/06/24 21:44 Plt Count 80 K/uL (130-400) L 08/06/24 21:44 MPV 11.0 fL (9.4-12.4) 08/06/24 21:44 Immature Gran % (Auto) 0.5 % 08/06/24 21:44 Neut % (Auto) 80.6 % 08/06/24 21:44 Lymph % (Auto) 14.7 % 08/06/24 21:44 [place] % (Auto) 3.8 % 08/06/24 21:44 Eos % (Auto) 0.2 % 08/06/24 21:44 Baso % (Auto) 0.2 % 08/06/24 21:44 Neut # (Auto) 4.68 K/uL (1.40-6.50) 08/06/24 21:44 Lymph # (Auto) 0.85 K/uL (1.20-3.40) L 08/06/24 21:44 [place] # (Auto) 0.22 K/uL (0.11-0.59) 08/06/24 21:44 Eos # (Auto) 0.01 K/uL (0.00-0.50) 08/06/24 21:44 Baso # (Auto) 0.01 K/uL (0.00-0.20) 08/06/24 21:44 Immature Gran # (Auto) 0.03 K/uL (0.01-0.20) 08/06/24 21:44 Sodium 138 mmol/L (136-145) 08/06/24 21:44 Potassium 4.0 mmol/L (3.5-5.1) 08/06/24 21:44 Chloride 99 mmol/L (98-107) 08/06/24 21:44 Carbon Dioxide 30 mmol/L (21-32) 08/06/24 21:44 Anion Gap 9 (3-11) 08/06/24 21:44 BUN 7 mg/dl (6-23) 08/06/24 21:44 Creatinine 0.67 mg/dl (0.6-1.4) 08/06/24 21:44 Est Cr Clr Drug Dosing 130.2 ml/min 08/06/24 21:44 eGFR 112.34 08/06/24 21:44 BUN/Creatinine Ratio 10.4 (10-20) 08/06/24 21:44 Glucose 216 mg/dl (70-99(Fasting)) H 08/06/24 21:44 POC Glucose 217 mg/dl (70-99) H 08/06/24 21:45 Calcium 8.4 mg/dl (8.6-10.3) L 08/06/24 21:44 Total Bilirubin 0.5 mg/dl (0.2-1.0) 08/06/24 21:44 AST 142 U/L (13-39) H 08/06/24 21:44 ALT 77 U/L (7-52) H 08/06/24 21:44 Alkaline Phosphatase 131 U/L (34-104) H 08/06/24 21:44 Troponin I High Sens 8.0 pg/ml (0-20) 08/06/24 21:44 Total Protein 7.0 gm/dl (6.0-8.3) 08/06/24 21:44 Albumin 3.7 gm/dl (3.4-5.0) 08/06/24 21:44 Globulin 3.3 gm/dl (2.5-4.0) 08/06/24 21:44 Albumin/Globulin Ratio 1.1 (0.9-2) 08/06/24 21:44 Ethyl Alcohol mg/dL 249.8 mg/dl (<10.0) H 08/06/24 21:44 CT chest: 1. No pulmonary embolism. 2. Airspace consolidation in the RIGHT upper lobe, consistent with pneumonia. 3. Severe hepatic steatosis. Diagnostic Findings EKG as per my interpretation :Rate 80, NSR, RAD, septal infarct, nonspecific T wave abnormalities
[2024-08-06 22:49] LABS: Estimated Average Glucose 126 mg/dl
[2024-08-06] MEDS: LORazepam 2 MG/1 ML VIAL IV STA (22:50)
[2024-08-06 22:54] LABS: Magnesium 1.7 mg/dl (1.7-2.4)
[2024-08-06 22:56] LABS: INR 0.9 (0.9-1.1); Partial Thromboplastin Ratio 1.1; Partial Thromboplastin Time 29 Seconds (21-31); Prothrombin Time 10.1 Seconds (9.0-12.0)
[2024-08-06] MEDS ORDERED: Ativan IV Alcohol Withdrawal--Active Protocol IV PRN (23:03)
[2024-08-06] MEDS ORDERED: GABAPENTIN 1200MG ALCOHOL WITHDRAWAL LOAD PO STA (23:03)
[2024-08-06] MEDS ORDERED: LORazepam 2 MG/1 ML VIAL IV PRN (23:03)
[2024-08-06] MEDS ORDERED: oxyCODONE HCL IR 5 MG TAB (IMMEDIATE RELEASE) PO PRN (23:04)
[2024-08-06] MEDS ORDERED: ACETAMINOPHEN 325 MG TAB PO PRN (23:04)
[2024-08-06] MEDS: ALBUT/IPRATROP 3MG/0.5MG NEB 3 ML VIAL NEB STA (23:10)
[2024-08-06] MEDS: FOLIC ACID 1 MG in SYRINGE 9.8 ML IV STA (23:18)
[2024-08-06] MEDS: THIAMINE HCL 200 MG in SODIUM CHLORIDE 0.9% 50 ML IV STA (23:19)
[2024-08-06] MEDS: DOXYCYCLINE HYCLATE 100 MG in DEXTROSE 5% MINI-B 100 ML IV STA (23:28)
[2024-08-06] MEDS: OPTIRAY 320 125ml IV ONE (23:40)
[2024-08-07] MEDS: NICOTINE 21 MG/24 HR TDSY TD SCH (00:14)
[2024-08-07] MEDS: GABAPENTIN 600 MG TAB PO ONE (00:15)
[2024-08-07] MEDS: methylPREDNISolone 125 MG/2 ML VIAL IV STA (00:17)
[2024-08-07 00:19] LABS: Adenovirus PCR Not Detected (NotDetected); Bordetella parapertussis PCR Not Detected (NotDetected); Bordetella pertussis PCR Not Detected (NotDetected); Chlamydia pneumoniae PCR Not Detected (NotDetected); Coronavirus 229E PCR Not Detected (NotDetected); Coronavirus CoV-2 (COVID19)PCR Not Detected (NotDetected); Coronavirus HKU1 PCR Not Detected (NotDetected); Coronavirus NL63 PCR Not Detected (NotDetected); Coronavirus OC43PCR Not Detected (NotDetected); Human Metapneumovirus PCR Not Detected (NotDetected); Influenza A PCR Not Detected (NotDetected); Influenza B PCR Not Detected (NotDetected); Mycoplasma pneumoniae PCR Not Detected (NotDetected); Parainfluenza Virus 1 PCR Not Detected (NotDetected); Parainfluenza Virus 2 PCR Not Detected (NotDetected); Parainfluenza Virus 3 PCR Not Detected (NotDetected); Parainfluenza Virus 4 PCR Not Detected (NotDetected); Respiratory Syncytial VirusPCR Not Detected (NotDetected); Rhinovirus/Enterovirus PCR Not Detected (NotDetected)
--- NOTE | 2024-08-07 00:24 | CT Scan Report ---
Exam(s): CTA CHEST IV Amt: 118 cc opti 320 EXAM: CT Angiography Chest With Intravenous Contrast CLINICAL HISTORY: Reason for exam: cp. TECHNIQUE: Axial computed tomographic angiography images of the chest with intravenous contrast. Automated exposure control was utilized for the study. A dose lowering technique was utilized adhering to the principles of ALARA. MIP reconstructed images were created and reviewed. COMPARISON: No relevant prior studies available. FINDINGS: Pulmonary arteries: Unremarkable. No pulmonary embolism. Aorta: No acute findings. No thoracic aortic aneurysm. Four-vessel aortic arch. Lungs: Airspace consolidation in the RIGHT upper lobe, consistent with pneumonia. Pleural space: Unremarkable. No significant effusion. No pneumothorax. Heart: Unremarkable. No cardiomegaly. No significant pericardial effusion. No evidence of RV dysfunction. Bones/joints: No acute fracture. No dislocation. Soft tissues: Unremarkable. Lymph nodes: Unremarkable. No enlarged lymph nodes. Liver: Severe hepatic steatosis. Gallbladder and bile ducts: Cholelithiasis. IMPRESSION: 1. No pulmonary embolism. 2. Airspace consolidation in the RIGHT upper lobe, consistent with pneumonia. 3. Severe hepatic steatosis. Electronically signed by: Adriel Dutta MD 08/07/24 00:23 AM
[2024-08-07 00:39] LABS: Base Excess VBG 3.8 mEq/L; HCO3 VBG 29 mmol/L; Oxygen Saturation VBG 78.6 %; PCO2 VBG 46 mmHg (38-50); PO2 VBG 46 mmHg; pH VBG 7.41 (7.36-7.41)
[2024-08-07] MEDS: LORazepam 2 MG/1 ML VIAL IV PRN ×2 (02:25→21:05)
[2024-08-07] MEDS: SODIUM CHLORIDE 0.9% 1,000 ML IV ONE (02:27)
[2024-08-07] MEDS: AMPICILLIN/SULBACTAM SOD 3,000 MG/100 ML BAG IV STA (02:28)
[2024-08-07] MEDS: MAGNESIUM SULFATE / D5W 1 GM/100 ML BAG IV ONE (02:40)
[2024-08-07] MEDS: GABAPENTIN 600 MG TAB PO SCH ×2 (05:30→19:32)
[2024-08-07 06:20] LABS: BUN Creatinine Ratio 10.7 (10-20); Calcium 8.1 mg/dl (8.6-10.3); Creatinine Clr Calc Pharmacy 169.4 ml/min; Potassium 4.1 mmol/L (3.5-5.1)
[2024-08-07 07:00] LABS: Hematocrit (blood only) 39.2 % (42.0-52.0); Hemoglobin 14.3 g/dl (14.0-18.0); Mean Corpuscular Hemoglobin 35.5 pg (25.0-34.0); Mean Corpuscular Hgb Conc 36.5 g/dL (32.0-36.0); Mean Corpuscular Volume 97.3 fL (80.0-100.0); Mean Platelet Volume 11.7 fL (9.4-12.4); Platelet Count 73 K/uL (130-400); RDW Coefficient of Variation 16.1 % (11.5-14.5); RDW Standard Deviation 58.2 fL (36.4-46.3); Red Blood Count 4.03 M/uL (4.70-6.10); White Blood Count 5.03 K/ul (4.8-10.8)
--- NOTE | 2024-08-07 07:38 | XRay Report ---
SINGLE VIEW CHEST CLINICAL HISTORY: Atypical chest pain FINDINGS: An AP, portable, upright chest radiograph is compared to study dated 08/17/2023 and correla vicky with chest CT dated 06/02/2024. The cardiomediastinal silhouette is unremarkable. Chronic interstit ial thickening is similar to previous. There is patchy airspace consolidation in the right upper lobe . No large pleural effusion or pneumothorax is seen. The skeletal structures appear osteopenic. The b mp thorax is grossly intact. IMPRESSION: Patchy airspace consolidation in the right upper lobe is typical for pneumonia. Clinical correlation will be required and radiographic follow-up to resolution is recommended. ACT 112: Negative or not required by law. Electronically signed by: Carlos Kaufman M.D. 08/07/2024 7:37 AM
[2024-08-07] MEDS: FOLIC ACID 1 MG TAB PO SCH (08:06)
[2024-08-07] MEDS: diazePAM 5 MG TABLET PO SCH ×2 (08:06→10:18)
[2024-08-07] MEDS: THIAMINE HCL 100 MG TAB PO SCH (08:06)
[2024-08-07 08:41] LABS: Basophils # (auto) 0.01 K/uL (0.00-0.20); Basophils % (auto) 0.2 %; Immature Granulocytes # (auto) 0.04 K/uL (0.01-0.20); Immature Granulocytes % (auto) 0.8 %; Lymphocytes # (auto) 0.25 K/uL (1.20-3.40); Monocytes # (auto) 0.14 K/uL (0.11-0.59); Monocytes % (auto) 2.8 %; Neutrophils # (auto) 4.59 K/uL (1.40-6.50); Neutrophils % (auto) 91.2 %
[2024-08-07] MEDS: PROMETHAZINE 6.25 MG/50.25 ML BAG IV PRN (09:35)
[2024-08-07] MEDS: ALBUT/IPRATROP 3MG/0.5MG NEB 3 ML VIAL NEB SCH (11:13)
[2024-08-07] MEDS: SODIUM CHLOR 7% 4 ML NEB NEB SCH (11:13)
--- NOTE | 2024-08-07 11:29 | Hospitalist Progress Note ---
Date of Service August 07, 2024 Assessment & Plan (1) Acute hypoxemic respiratory failure: (2) Alcohol withdrawal: (3) Elevated liver function tests: Plan Patient is a 53-year-old male with past medical history of alcohol use disorder who presented to the hospital due to cough and alcohol withdrawal symptoms. Acute hypoxic respiratory failure Pneumonia Patient presents with shortness of breath and cough Respiratory rate greater than 22 and SpO2 less than 90% on admission Chest x-ray on admission shows patchy airspace consolidation in right upper lobe typical for pneumonia CTA chestno PE, airspace consolidation in right upper lobe consistent with pneumonia Started on ceftriaxone for pneumonia Airway clearance therapy with DuoNeb and hypertonic saline, flutter valve Obtain a sputum culture Alcohol use disorder Alcohol withdrawal Patient reports signs and symptoms of alcohol withdrawals with tremors and anxiety. No symptoms of hallucinations Reports outpatient counselor appointment in the future Started on a schedule Valium; will taper down as tolerated. Continue gabapentin and Ativan DION S protocol Prediabetes HbA1c of 6.0% Discussed dietary measures Elevated liver enzyme AST greater than ALT Likely due to alcohol use Monitor Full code DVT prophylaxis SCDs Time spent evaluating patient, direct bedside care, chart review, placing or ders, interpretation of diagnostic studies, discussion with consultants, patient, and family members, as well as other required patient management activities is 50 minutes Please note the above document was generated using voice recognition software. It may contain grammatical, syntax or spelling errors. Any formal questions or concerns about the content, text or information contained within the body of this dictation should be directly addressed to the provider for clarification Admission and Anticipated Discharge Date Admission Date: August 06, 2024 Subjective Patient seen and examined at bedside. He reports that he is feeling anxious and has tremors as well. He is coughing and bringing up occasional phlegm. Review of Systems Review of Systems: All systems reviewed & are unremarkable except as noted in Subjective Physical Exam Physical Exam: Constitutional: Awake, alert oriented x 3; not in distress. As tremors in bilateral upper extremity. Appears anxious Respiratory: Decreased breath sound on right upper lung field. Cardiovascular: RRR, no murmur, no edema Vessels: no JVD or carotid bruit Chest: normal inspection of chest Abdomen: normal bowel sounds, soft, nontender, no hepatosplenomegaly Musculoskeletal: no cyanosis or clubbing, extremities motor strength 5/5 Skin: no rashes, warm and dry normal turgor Neurologic: PERRL, EOMI, accommodation nl, no face palsy, no dysarthria CN's II- XI intact bilaterally and moves all extremities Psychiatric: A+Ox3, euthymic affect Results & Data Results & Data Vital Signs (Past 12 Hours) Vital Signs Temp Pulse Pulse Resp BP Pulse Ox O2 Del Method 08/07/24 11:27 36.8 C 67 18 126/76 92 Nasal Cannula 08/07/24 11:15 63 17 91 Nasal Cannula 08/07/24 08:27 62 08/07/24 07:40 37.1 C 67 20 114/73 91 Nasal Cannula 08/07/24 07:40 Nasal Cannula 08/07/24 05:24 64 08/07/24 01:56 36.8 C 86 24 122/71 93 Nasal Cannula 08/07/24 01:34 88 08/07/24 01:30 Nasal Cannula 08/07/24 00:18 99 H 23 102/62 O2 Flow Rate 08/07/24 11:27 5 08/07/24 11:15 4 08/07/24 08:27 08/07/24 07:40 4 08/07/24 07:40 4 08/07/24 05:24 08/07/24 01:56 4 08/07/24 01:34 08/07/24 01:30 4 08/07/24 00:18
[2024-08-07] MEDS: cefTRIAXone SODIUM 2,000 MG/50 ML BAG IV SCH (12:10)
--- NOTE | 2024-08-07 15:11 | Electrocardiogram Report ---
Test Reason : Blood Pressure : */* mmHG Vent. Rate : 80 BPM Atrial Rate : 80 BPM P-R Int : 138 ms QRS Dur : 90 ms QT Int : 376 ms P-R-T Axes : 81 90 58 degrees QTcB Int : 433 ms Normal sinus rhythm Rightward axis Septal infarct , age undetermined Abnormal ECG When compared with ECG of 02-Jun-2024 15:45, No significant change was found Confirmed by Demetrio Martins ([id number]) on 08/07/2024 3:11:44 PM Referred By: REFERRED SELF Confirmed By: Demetrio Martins
[2024-08-07] MEDS ORDERED: AMOXICILLIN/CLAVULANATE 875 MG TAB PO SCH (20:00)
[2024-08-08] MEDS: GABAPENTIN 600 MG TAB PO SCH (01:04)
[2024-08-08 05:52] LABS: Basophils # (auto) 0.01 K/uL (0.00-0.20); Basophils % (auto) 0.1 %; Eosinophils # (auto) 0.02 K/uL (0.00-0.50); Eosinophils % (auto) 0.2 %; Hematocrit (blood only) 40.6 % (42.0-52.0); Hemoglobin 14.1 g/dl (14.0-18.0); Immature Granulocytes # (auto) 0.06 K/uL (0.01-0.20); Immature Granulocytes % (auto) 0.7 %; Lymphocytes # (auto) 0.77 K/uL (1.20-3.40); Lymphocytes % (auto) 9.4 %; Mean Corpuscular Hemoglobin 34.8 pg (25.0-34.0); Mean Corpuscular Hgb Conc 34.7 g/dL (32.0-36.0); Mean Corpuscular Volume 100.2 fL (80.0-100.0); Mean Platelet Volume 11.4 fL (9.4-12.4); Monocytes % (auto) 7.3 %; Neutrophils # (auto) 6.73 K/uL (1.40-6.50); Neutrophils % (auto) 82.3 %; Nucleated RBC # (auto) 0.03 K/uL (0.00-0.12); Nucleated RBC % (auto) 0.4 %; Platelet Count 85 K/uL (130-400); RDW Coefficient of Variation 16.2 % (11.5-14.5); RDW Standard Deviation 60.6 fL (36.4-46.3); Red Blood Count 4.05 M/uL (4.70-6.10); White Blood Count 8.19 K/ul (4.8-10.8)
[2024-08-08 05:59] LABS: Calcium 8.4 mg/dl (8.6-10.3); Creatinine Clr Calc Pharmacy 172.4 ml/min; Potassium 4.2 mmol/L (3.5-5.1)
[2024-08-08] MEDS: diazePAM 5 MG TABLET PO SCH (08:23)
[2024-08-08] MEDS ORDERED: NICOTINE POLACRILEX 2 MG GUM MT PRN (10:37)
--- NOTE | 2024-08-08 12:17 | Hospitalist Progress Note ---
Date of Service August 08, 2024 Assessment & Plan (1) Acute hypoxemic respiratory failure: (2) Alcohol withdrawal: (3) Elevated liver function tests: Plan Patient is a 53-year-old male with past medical history of alcohol use disorder who presented to the hospital due to cough and alcohol withdrawal symptoms. Acute hypoxic respiratory failure Pneumonia Patient presents with shortness of breath and cough Respiratory rate greater than 22 and SpO2 less than 90% on admission Chest x-ray on admission shows patchy airspace consolidation in right upper lobe typical for pneumonia CTA chestno PE, airspace consolidation in right upper lobe consistent with pneumonia Started on ceftriaxone for pneumonia, continue. sputum cx pending Airway clearance therapy with DuoNeb and hypertonic saline, flutter valve Obtain a sputum culture Alcohol use disorder Alcohol withdrawal Patient reports signs and symptoms of alcohol withdrawals with tremors and anxiety. No symptoms of hallucinations Reports outpatient counselor appointment in the future Started on a schedule Valium; tapered down today to three times a day. Continue gabapentin and Ativan DION S protocol Prediabetes HbA1c of 6.0% Discussed dietary measures Elevated liver enzyme AST greater than ALT Likely due to alcohol use Monitor Full code DVT prophylaxis SCDs, Please note the above document was generated using voice recognition software. It may contain grammatical, syntax or spelling errors. Any formal questions or concerns about the content, text or information contained within the body of this dictation should be directly addressed to the provider for clarification Admission and Anticipated Discharge Date Admission Date: August 06, 2024 Subjective Patient seen and examined at bedside. He reports that the tremors have improved Reports that his sputum is clearing up as well No significant events overnight Review of Systems Review of Systems: All systems reviewed & are unremarkable except as noted in Subjective Physical Exam Physical Exam: Constitutional: Awake, alert oriented x 3; not in distress. Minimal tremors. Respiratory: Decreased breath sound on right upper lung field. Cardiovascular: RRR, no murmur, no edema Vessels: no JVD or carotid bruit Chest: normal inspection of chest Abdomen: normal bowel sounds, soft, nontender, no hepatosplenomegaly Musculoskeletal: no cyanosis or clubbing, extremities motor strength 5/5 Skin: no rashes, warm and dry normal turgor Neurologic: PERRL, EOMI, accommodation nl, no face palsy, no dysarthria CN's II- XI intact bilaterally and moves all extremities Psychiatric: A+Ox3, euthymic affect Results & Data Results & Data Vital Signs (Past 12 Hours) Vital Signs Temp Pulse Pulse Resp BP Pulse Ox O2 Del Method 08/08/24 11:08 36.8 C 76 18 131/78 92 Nasal Cannula 08/08/24 08:35 92 Nasal Cannula 08/08/24 08:24 Nasal Cannula 08/08/24 07:31 36.6 C 82 18 122/82 96 Nasal Cannula 08/08/24 06:59 68 18 88 L Room Air 08/08/24 05:59 63 08/08/24 02:49 36.5 C 52 L 16 128/82 96 Nasal Cannula O2 Flow Rate 08/08/24 11:08 3 08/08/24 08:35 3 08/08/24 08:24 3 08/08/24 07:31 4 08/08/24 06:59 08/08/24 05:59 08/08/24 02:49 4
[2024-08-09 09:11] LABS: Basophils # (auto) 0.01 K/uL (0.00-0.20); Basophils % (auto) 0.2 %; Eosinophils # (auto) 0.04 K/uL (0.00-0.50); Eosinophils % (auto) 0.8 %; Hematocrit (blood only) 46.9 % (42.0-52.0); Hemoglobin 16.3 g/dl (14.0-18.0); Immature Granulocytes # (auto) 0.03 K/uL (0.01-0.20); Immature Granulocytes % (auto) 0.6 %; Lymphocytes # (auto) 1.29 K/uL (1.20-3.40); Lymphocytes % (auto) 26.5 %; Mean Corpuscular Hemoglobin 34.5 pg (25.0-34.0); Mean Corpuscular Hgb Conc 34.8 g/dL (32.0-36.0); Mean Corpuscular Volume 99.4 fL (80.0-100.0); Monocytes # (auto) 0.36 K/uL (0.11-0.59); Monocytes % (auto) 7.4 %; Neutrophils # (auto) 3.14 K/uL (1.40-6.50); Neutrophils % (auto) 64.5 %; Platelet Count 110 K/uL (130-400); RDW Coefficient of Variation 16.4 % (11.5-14.5); RDW Standard Deviation 60.1 fL (36.4-46.3); Red Blood Count 4.72 M/uL (4.70-6.10); White Blood Count 4.87 K/ul (4.8-10.8)
[2024-08-09 09:28] LABS: BUN Creatinine Ratio 19.7 (10-20); Creatinine Clr Calc Pharmacy 143.7 ml/min; Potassium 4.2 mmol/L (3.5-5.1)
[2024-08-09 11:51] VITALS: O2SAT 93
--- NOTE | 2024-08-09 12:46 | Discharge Summary ---
Date of Service August 09, 2024 Admission HPI Per Admitting Provider History obtained from patient and records. Medical history significant for prediabetes, anxiety/mood disorder, chronic back pain, chronic thrombocytopenia, ongoing tobacco/alcohol abuse. Last confinement July 2023 for alcohol withdrawal. Patient left AGAINST MEDICAL ADVICE. Few days history of junky cough symptoms. Denies aspiration. Substernal heaviness with SOB. Vomiting symptoms without abdominal pain. Patient went to ER tonight because he wants to detox. Lowest O2 sats of 80s documented at the ER. Medical History as above Surgical History : None Family History : DM Personal/Social history : 1 pack daily, alcohol abuse, currently unemployed/occasional [employer] work Admission Exam Per Admitting Provider GENERAL: uncomfortable, tremulous, alcoholic fetor SKIN: Normal color, warm HEENT: Alopecia, pink palpebral conjunctivae, no ptosis, dry buccal mucosa, nasal cannula in place NECK : Supple, no tenderness CHEST : Decreased breath sounds, scattered expiratory wheezes more on the right, no tenderness HEART : RRR, no obvious murmurs ABDOMEN: Some distention, nontender EXTREMITIES : No LE swelling/tenderness, no other conspicuous deformities noted NEUROLOGIC : Coherent, no facial asymmetry, tremulous, no other gross focality Principal Diagnosis Acute hypoxic respiratory failure Pneumonia Discharge Exam Constitutional: WD/WN, vitals as above, NAD, sitting up in bed, pleasant, conversing easily Respiratory: Bilateral clear breath sound Cardiovascular: RRR, no murmur, no edema Vessels: no JVD or carotid bruit Chest: normal inspection of chest Abdomen: normal bowel sounds, soft, nontender, no hepatosplenomegaly Musculoskeletal: no cyanosis or clubbing, extremities motor strength 5/5 Skin: no rashes, warm and dry normal turgor Neurologic: PERRL, EOMI, accommodation nl, no face palsy, no dysarthria CN's II- XI intact bilaterally and moves all extremities Psychiatric: A+Ox3, euthymic affect Discharge Data Allergies Allergy/AdvReac Type Severity Reaction Status Date / Time No Known Allergies Allergy Verified 08/06/24 21:31 Consultations 08/06/24 22:30 ED Decision to Admit Stat Ordered Studies 08/06/24 23:02 CT angio chest PE protocol Stat Hospital Course (1) Acute hypoxemic respiratory failure: (2) Alcohol withdrawal: Plan Patient is a 53-year-old male with past medical history of alcohol use disorder who presented to the hospital due to cough and alcohol withdrawal symptoms. Acute hypoxic respiratory failure Pneumonia Patient presents with shortness of breath and cough Respiratory rate greater than 22 and SpO2 less than 90% on admission Chest x-ray on admission shows patchy airspace consolidation in right upper lobe typical for pneumonia CTA chestno PE, airspace consolidation in right upper lobe consistent with pneumonia During the hospitalization, patient was treated with ceftriaxone for pneumonia. Sputum culture was positive for Streptococcus pneumoniae. He underwent airway clearance therapy with DuoNeb and hypertonic saline. At discharge, he was placed on oral antibiotics. Alcohol use disorder Alcohol withdrawal Patient reports signs and symptoms of alcohol withdrawals with tremors and anxiety. No symptoms of hallucinations Reports outpatient counselor appointment in the future Was started on Valium, gabapentin with improvement in withdrawal symptoms. At the time of discharge, he was alert oriented x 3; no sign or symptoms of withdrawal. Patient to follow-up with counseling as outpatient. Please note the above document was generated using voice recognition software. It may contain grammatical, syntax or spelling errors. Any formal questions or concerns about the content, text or information contained within the body of this dictation should be directly addressed to the provider for clarification Total Time Total Time Spent Total Time Spent (In Minutes): 34 Total Time Includes: Examination of the Patient, Discharge Planning, Medication Reconciliation, Communication With Other Providers and Other Discharge Plan Discharge Items Patient Disposition: Home - Self-Care Reason For Visit: RESP FAILURE Discharge Diagnosis: Acute hypoxic respiratory failure Pneumonia Activity: Resume your previous activity Non-emergency contact: Primary Care Provider Call non-emergency contact if: you have any medication questions and your symptoms worsen Follow-up/Referrals: [facility] [Other] - 09/05/24 11:00 am (This appointment is with Juan Cabral. This was the earliest appointment available.) James Camejo MD [Outside Practitioners] - (Date & Time 08/16/2024 11:00 AM Provider James Camejo MD Department Family [facility] ) Diet: Regular Addtl Attending Provider Instructions: You were admitted to the hospital due to pneumonia. You are treated with antibiotic during the hospitalization. You are prescribed levofloxacin to be taken once daily for 4 more days. You are also prescribed gabapentin as discussed. An appointment with Dr. Bashir has been set up for you for next week. Pending Studies at Discharge: No Stand-Alone Forms: My [facility], Smoking Cessation Medications and DC Order Prescriptions: New thiamine HCl (vitamin B1) 100 mg Tablet 100 mg PO QAM Qty: 30 0RF folic acid 1 mg Tablet 1 mg PO QAM Qty: 30 0RF levofloxacin 750 mg tablet 750 mg PO DAILY 4 Days Qty: 4 0RF Continued gabapentin 400 mg Capsule 400 mg PO TID 30 Days Qty: 90 0RF Discontinued ibuprofen 200 mg Tablet 400 mg PO Q6H PRN (Reason: Pain) Discharge Orders: Discharge Order (Routine); Ordered 08/09/24 Ordered By: Akil Lee/Other Patient Handouts: Prediabetes, 5 Steps for Eating Healthier Admission Data Admit Date/Time: 08/06/24 22:37 Attending Provider: Akil Valles Admit Provider: Axel Johnson Primary Care Provider: Roby Louie Other Providers: Axel Johnson
[2024-08-09] MEDS: diazePAM 5 MG TABLET PO SCH (14:19)
[2024-08-09] MEDS: HEPARIN SOD 5,000 UNIT/0.5 ML VIAL SQ SCH (14:20)
[2024-08-09 15:55] VITALS: BP 132/74; PULSE 63; RESP 16; TEMP 98.2
[2024-08-10] MEDS ORDERED: GABAPENTIN 600 MG TAB PO SCH (12:00)
[2024-08-10] MEDS ORDERED: GABAPENTIN 400 MG CAP PO SCH (21:00)
== END 2024-08-09 17:04 | disposition home or self-care (01) | DRG 193 ==
LOC: ED 21:21 → 2N 22:37
DX: J96.01 Acute respiratory failure with hypoxia; G89.29 Other chronic pain; Z56.0 Unemployment, unspecified; M54.9 Dorsalgia, unspecified; D69.6 Thrombocytopenia, unspecified; R73.03 Prediabetes; J18.9 Pneumonia, unspecified organism; K70.10 Alcoholic hepatitis without ascites; Y90.8 Blood alcohol level of 240 mg/100 ml or more; F17.210 Nicotine dependence, cigarettes, uncomplicated; F41.9 Anxiety disorder, unspecified; F10.239 Alcohol dependence with withdrawal, unspecified; F39 Unspecified mood [affective] disorder